=== PATIENT | female | born 1945 | race Caucasian/White ===

== ENCOUNTER → 2017-10-06 | Outpatient (CLI) | payer OTHER ==
[~2017-10-06] MED LIST: ACETAMINOPHEN325 M1 PO; ADVAIR 250-501 EACH INH; ADVAIR HFA 1112 UNIT INH; AZITHROMYCIN 2250 MG PO; B12INJ IM; BACLOFEN 10 MG10 MG PO; CLONAZEPAM; CLONAZEPAM 0.50.5 M1; CLONAZEPAM 0.50.5 M1 PO; CLONAZEPAM 1 MG1 M1 PO; COLESTID1 GM PO; COMBIVENT RESPIM4 GM INH; DUONEB 2.5-0.5 M3 ML INH; EXCEDRIN MIGRA1 EAC1 PO; HYDROXYZINE HCL25 M1 PO; HYDROXYZINE HCL25 M2 PO; IBUPROFEN 200200 M1 PO; ICY HOT BALM99.2 GM TOP; IMITREX100 MG PO; K-DUR 20 MEQ T20 MEQ PO; KEPPRA 500 MG500 M1; KEPPRA250 MG PO; LASIX 40 MG TAB40 M1 GT; LEVOTHROID PO; LEVOTHYROXIN0.125 M1 PO; LEVOTHYROXINE 0.1 MG PO; LIORESAL 10 MG10 MG PO; LOMOTIL 2.5-0.01 TAB PO; LOMOTIL TABLET1 EACH PO; LYRICA 75 MG CA75 MG PO; LYRICA150 MG PO; MACROBID 100 M100 M1 PO; METOCLOPRAMIDE; METOCLOPRAMIDE10 MG PO; METOLAZONE 2.52.5 MG PO; MOBIC7.5 MG; MOBIC7.5 MG PO; NEURONTIN 300300 M1 PO; NEURONTIN 300M300 M2 PO; NEURONTIN600 MG PO; NORCO 5-325 TA1 EACH PO; ONDANSETRON HCL4 M2 PO; PERCOCET 10-321 EACH PO; PERCOCET 5-3251 EACH; PERCOCET 5-3251 EACH PO; POTASSIUM20 PO; PREDNISONE 10 M10 M1 PO; PREDNISONE 5 MG5 M1 PO; REGLAN 10 MG TA10 MG; REGLAN 10 MG TA10 MG PO; REQUIP 1 MG TABL1 M1; RESTORIL15 MG PO; SYNTHROID200 MCG PO; TIZANIDINE HCL 22 M1 PO; XOPENEX HFA15 GM INH; ZANAFLEX2 M1 PO; ZANAFLEX4 M1; ZANAFLEX4 MG PO
[2017-10-06 14:58] LABS: CREATININE 0.8 mg/dL (0.6-1.0)
== END ==
LOC: MRI 14:01
PROVIDERS: Anesthesiology
DX: M47.896 Other spondylosis, lumbar region (principal); M48.061 Spinal stenosis, lumbar region without neurogenic claudication; M41.86 Other forms of scoliosis, lumbar region; M54.6 Pain in thoracic spine

== ENCOUNTER → 2017-11-04 | Outpatient (CLI) | payer OTHER | LOC: MRI 09-22 09:17 → CAT 08:10 | DX: I51.7 Cardiomegaly (principal); R10.32 Left lower quadrant pain ==

== ENCOUNTER → 2017-12-12 | Outpatient (CLI) | payer OTHER ==
[~2017-12-12] MED LIST changes: +DILANTIN100 MG PO; +KEPPRA 500 MG500 M1 PO; +LINZESS145 MCG PO; +VITAMIN B-12500 MCG PO
== END ==
LOC: ULTRA 09:04
DX: R10.32 Left lower quadrant pain (principal); R10.2 Pelvic and perineal pain; Z90.710 Acquired absence of both cervix and uterus; Z90.49 Acquired absence of other specified parts of digestive tract

== ENCOUNTER → 2018-01-14 | Outpatient (CLI) | payer OTHER | LOC: CAT 01-07 07:52 | DX: R91.1 Solitary pulmonary nodule (principal); J98.4 Other disorders of lung; J84.10 Pulmonary fibrosis, unspecified; Z90.49 Acquired absence of other specified parts of digestive tract ==

== ENCOUNTER 2018-01-18 23:20 | Inpatient (IN) | payer OTHER ==
[~2018-01-18] VITALS: Ht 162.6 cm; Wt 45.4 kg
--- NOTE | ~2018-01-18 | EEG ---
[facility] [place] [address] ELECTROENCEPHALOGRAM Name: SERA VILA Room #: 430-P [facility] IN M.R.#: [id number] Admission: 01/19/18 Attend Phys: Kevin Gasca MD Discharge: 01/24/18 Date of : 43 Report #: [id number] THIS REPORT FOR: //name// CC: Kevin Huang DATE OF SERVICE: 01/22/2018 This patient is being evaluated for the possibility of seizure. She was in nonconvulsive status epilepticus yesterday. EEG is done for comparison. EEG was done by placing the electrodes by standard 10/20 system of electrode placement. Both referential and sequential montages were used for recording. Background activity in this patient's EEG goes about 8-9 Hz and 30 microvolt. The patient went to sleep, that is associated with bilateral slowing, vertex sharp waves and sleep spindle. Some epileptiform activity is still present, but there is a marked improvement since yesterday. IMPRESSION: Significant improvement and pretty significant decrease in epileptiform activities in this patient's EEG. Some epileptiform activity is still present and is not fully resolved yet. Thank you very much for this referral. <ELECTRONICALLY SIGNED> By: Hugo Farmer MD 01/24/18 1552 1136 1153 Hugo Farmer MD /nt
--- NOTE | ~2018-01-18 | EEG ---
[facility] [place] [address] ELECTROENCEPHALOGRAM Name: SERA VILA Room #: 430-P [facility] IN M.R.#: [id number] Admission: 01/19/18 Attend Phys: Kevin Gasca MD Discharge: 01/24/18 Date of : 43 Report #: [id number] THIS REPORT FOR: //name// CC: Kevin Huang DATE OF SERVICE: 01/20/2018 This patient is being evaluated for altered mental status. This patient's EEG is severely abnormal and it demonstrates epileptiform activity from both sides. The activity is almost continuous. Photic stimulation is unremarkable. IMPRESSION: The patient's EEG is consistent with nonconvulsive status epilepticus. Thank you very much for this referral. <ELECTRONICALLY SIGNED> By: Hugo Farmer MD 01/24/18 1552 1115 1207 Hugo Farmer MD /nt
--- NOTE | ~2018-01-18 | EEG ---
[facility] [place] [address] ELECTROENCEPHALOGRAM Name: SERA VILA Room #: 430-P [facility] IN M.R.#: [id number] Admission: 01/19/18 Attend Phys: Kevin Gasca MD Discharge: 01/24/18 Date of : 43 Report #: [id number] THIS REPORT FOR: //name// CC: Kevin Huang DATE OF SERVICE: 01/19/2018 This patient is being evaluated for the possibility of seizure. EEG was done by placing the electrodes by standard 10-20 system of electrode placement. Both referential and sequential montages were used for recording. EEG is masked by a lot of artifact. It would appear the background activity is about 5-6 Hz and 30 microvolt. EEG continuously demonstrates artifact making the interpretation very difficult. Photic stimulation was unremarkable. It is very difficult to tell about epileptiform activity. IMPRESSION: This is a very difficult electroencephalogram to interpret because the patient's electroencephalogram is masked by a lot of artifact. Electroencephalogram does look slow on both sides. It is difficult to evaluate for epileptiform activity because of the artifact. <ELECTRONICALLY SIGNED> By: Hugo Farmer MD 01/24/18 1552 1611 1704 Hugo Farmer MD /nt
--- NOTE | ~2018-01-18 | EKG ---
[place] [address] [address] [place] [address] ELECTROCARDIOGRAM REPORT Name: SERA VILA Room #: 170-9 ADM IN M.R.#: [id number] Admission: 01/19/18 Attend Phys: Kevin Gasca MD Discharge: Date of : 44 Report #: [id number] THIS REPORT FOR: //name// [facility] ED Test Date: 2018-01-18 Test Time: 23:35:34 Pat Name: SERA VILA Department: Room: 170 Gender: F Shipping And Receiving Supervisor: COURTNEY : 1945 Requested By: Feng Stahl Order Number: [id number] MD: Nicolás Elizabeth Measurements Intervals [place] Rate: 83 P: 81 [place]: 156 QRS: -51 QRSD: 100 T: 65 QT: 355 QTc: 418 Interpretive Statements Sinus rhythm Left anterior fascicular block Compared to ECG 06/11/2016 16:52:00 No significant change was found Electronically Signed On 01-19-2018 8:44:37 C PROGRAMMER by Nicolás Elizabeth [email or web address] <ELECTRONICALLY SIGNED> By: Nicolás Elizabeth MD, [facility] 01/19/18 0844 2335 34 Nicolás Elizabeth MD, [facility] /EPI
--- NOTE | ~2018-01-18 | HC ---
[facility] [place] [address] CONSULTATION Name: SERA VILA Room #: 430-[facility] IN M.R.#: [id number] Admission: 01/19/18 Attend Phys: Kevin Gasca MD Discharge: 01/24/18 Date of : 44 Report #: [id number] THIS REPORT FOR: //name// CC: Kvein Huang DATE OF SERVICE: 01/23/2018 HISTORY OF PRESENT ILLNESS: The patient is a 72-year-old white female who was admitted with mental status changes, slurred speech, and gait instability. She was seen by Neurology, was noted to have an encephalopathy and nonconvulsive status epilepticus. She was placed on Keppra and Dilantin. She also has hyponatremia with sodium down to 129. She is starting to feel better now. We are seeing her in rehabilitation medicine consultation. PAST MEDICAL HISTORY: Includes a prior history of lung cancer and she has had approximately half of her right lung removed approximately 3 years ago. History of a seizure disorder, chronic low back pain, GERD. MEDICATIONS: Please see the full medication listing. ALLERGIES: BUPRENORPHINE FROM BUTRANS AND LEVOFLOXACIN. HABITS: Current every day smoker. No history of alcohol abuse. SOCIAL HISTORY: She lives in a house, which is in actuality a townhouse with a sister. She has a cane and a walker, but did not use them as she felt that they made her look old. There is a caregiver that assists her between 9 and 3 and she is typically alone for 1-2 hours a day. REVIEW OF SYSTEMS: Did not offer any current complaints of chest pain, shortness of breath, or abdominal discomfort. PHYSICAL EXAMINATION: GENERAL: A 72-year-old white female, small statured, thin, no obvious distress. She is rather cantankerous. VITAL SIGNS: Temperature 98.2, pulse 104, respirations 18, blood pressure 123/81. Facies appeared symmetric. HEENT: Appeared to be benign. EXTREMITIES: Functional range of motion of both upper extremities with strength grade 4-/5-4/5. DTRs are trace to 1. Lower extremities, no focal calf swelling, functional range of motion with strength grade 4-/5. She is mod assist with sit to stand. Gait was max assist 120 feet pushing the IV pole. She is noted to have moderate memory deficits. ASSESSMENT: A 72-year-old white female with the following problem list: [address] [address] CONSULTATION Name: SERA VILA Room #: 430-P [facility] IN .R.#: [id number] Admission: 01/19/18 Attend Phys: Kevin Gasca MD Discharge: 01/24/18 Date of : 43 Report #: [id number] 1. Nonconvulsive status epilepticus. 2. Encephalopathy. 3. Hyponatremia. 4. Functional mobility, ADLs and cognitive deficits. 5. Past history of lung cancer. 6. Prior history of a seizure disorder. 7. Chronic low back pain. PLAN: The patient is rather cantankerous and insists on going directly home. I encouraged her to continue working in the therapies to further improve her overall functional independence. Depending upon how she does, we will follow along with you regarding the possibility of a short acute in-hospital inpatient rehabilitation stay. If it is warranted, her family is probably going to need to talk with her as well in order to convince her why it would be indicated. She appears to have decreased insight, but also appears to be doing better overall. We will follow along with how she does in therapies today and be glad to assist regarding her rehab therapy needs. <ELECTRONICALLY SIGNED> By: Obed Hedrick MD 01/29/18 1124 1127 0151 Obed Hedrick MD /[facility]
--- NOTE | ~2018-01-18 | HC ---
[facility] [address] [place] [address] CONSULTATION Name: SERA VILA Room #: 430-[facility] IN M.R.#: [id number] Admission: 01/19/18 Attend Phys: Kevin Gasca MD Discharge: 01/24/18 Date of : 43 Report #: [id number] THIS REPORT FOR: //name// CC: Kevin Huang DATE OF SERVICE: 01/19/2018 HISTORY OF PRESENT ILLNESS: This is a 72-year-old female patient who is not able to provide any history at all. This patient rather does not have much speech output. Her Neurology consultation was requested today because of the possibility of seizure. I tried to reach the patient's brother, but was unable to reach the patient's brother. I talked to the [id number]-son, but she did not know much history. We were finally able to reach the brother just now. The history he provides is that this patient lives with her sister. She has moved in with her sister because of the financial things as well as some disability because she does not drive. He believes she started having seizures 3-4 years ago. The cause of the seizure was not clear. She was started on Keppra and her seizures were controlled. It looks like yesterday evening she started having some balance problem, altered mental status and was bumping into the things. It is not clear if she had a clear cut seizure at that time. The symptoms were acute on onset. She was brought to the Emergency Room and she was seen by Emergency Room. I reviewed those notes. It looks like the patient got admitted from the Emergency Room at that time and she has not demonstrated any clear cut history of seizures. I talked to the nurses multiple times. She is mostly complaining of back pain, but she has very little speech output. Brother thinks she may have said a few words, but I do not know whether she is able to talk at all. REVIEW OF SYSTEMS: Indicate that she does smoke. It is not clear why she started having seizure. Her sodium is somewhat low, but it is only about 132. That was the relevant 14-point review of system, which I carried out in this patient. She does have a history of lung cancer. She does have chronic low back pain and she goes to a pain management physician. PAST MEDICAL HISTORY: Positive for lung cancer. FAMILY HISTORY: Negative for any early age stroke. SOCIAL HISTORY: She smokes. PHYSICAL EXAMINATION: The patient's examination was carried out multiple times. I cannot get a good examination in this patient. The patient does not say any words. The patient does not smile for me to look at the face to tell about asymmetry. She is left handed according to the brother, but she used right hand [facility] [address] [place] [address] CONSULTATION Name: SERA VILA Room #: 430-P [facility] IN M.R.#: [id number] Admission: 01/19/18 Attend Phys: Kevin Gasca MD Discharge: 01/24/18 Date of : 43 Report #: [id number] more. She does not cooperate with the sensory system examination. I do not believe she has meningeal sign. She does not appear to have any respiratory difficulty. IMPRESSION: It is not clear what the patient's diagnosis is. Firstly, we need to evaluate the patient for the possibility of stroke. Her examination is poor, but she is left handed and she is using the right hand more than the left hand the best I can tell. She does have a history of seizures and I do not know what the original etiology of the seizure is, but presently I do not think anybody has documented seeing her having a seizure. Seizure is a possibility and we need to get an EEG, but we need to also make sure that she is not having any stroke. RECOMMENDATIONS: I would like to do an MRI in this patient to see if this patient had a stroke. If the patient did have a stroke the time of onset will be yesterday evening. I do not believe she will be any intervention candidate. If I am not able to get an MRI done soon, I would like to do a CT angio and perfusion in this patient, but MRI will be a better testing. Further management will depend upon the outcome of that testing. I did discuss that aspect with the family. The patient does have a living will, which they will bring and I will also get an EEG done to see if there is any seizure activity. I spent more than 50 minutes of time taking care of this patient and majority of that time was spent counseling this patient and when I realized the patient did not understand things, counseling the patient's brother. I discussed the patient with the nurses looking after this patient. This patient does not appear to be any intervention candidate because her symptoms happened sometime yesterday evening, but still I would like to pursue the workup and see if she is able to cooperate with MRI and I did order a stat MRI to look at that and if the stroke is excluded then we will consider other causes. Thank you very much for this referral and if you have any questions, please feel free to contact me. <ELECTRONICALLY SIGNED> By: Hugo Farmer MD 01/24/18 1549 1726 0419 Hugo Farmer MD /nt
[~2018-01-18 23:20] MED LIST changes: -DILANTIN100 MG PO; -KEPPRA 500 MG500 M1 PO; -LINZESS145 MCG PO; -VITAMIN B-12500 MCG PO
[2018-01-18 23:26] VITALS: BP 163/94
[2018-01-19 00:28] LABS: ABSOLUTE NEUTROPHILS 4.5 thou/uL (1.4-8.2); BASOPHILS 0.7 % (0.0-2.0); EOSINOPHILS 0.8 % (0.0-3.0); HEMATOCRIT 37.7 % (37.0-47.0); HEMOGLOBIN 12.7 gm/dL (12.0-15.0); LYMPHOCYTES 18.1 % (24.0-44.0); MCH 31.6 pg (26.0-34.0); MCHC 33.6 g/dL (28.0-37.0); MCV 93.8 fL (80.0-100.0); PLATELET COUNT 316 thou/uL (150-400); POLYS 69.4 % (36.0-66.0); RBC 4.02 mil/uL (4.20-5.00); RDW 13.9 % (10.5-14.5); WBC 6.6 thou/uL (4.0-11.0)
[2018-01-19 00:32] LABS: CALCIUM 9.4 mg/dL (8.5-10.1); POTASSIUM 3.6 mmol/L (3.5-5.1)
[2018-01-19 00:38] LABS: ALBUMIN 3.1 g/dL (3.4-5.0); TOTAL BILIRUBIN 0.2 mg/dL (<0.1-1.0); TOTAL PROTEIN 7.4 g/dL (6.4-8.2)
[2018-01-19 01:08] LABS: URINE BILIRUBIN NEGATIVE (Negative); URINE BLOOD NEGATIVE (Negative); URINE CLARITY CLEAR; URINE COLOR YELLOW; URINE GLUCOSE-RANDOM* NEGATIVE (Negative); URINE KETONES NEGATIVE (Negative); URINE LEUKOCYTES-REFLEX NEGATIVE (Negative); URINE NITRITE-REFLEX NEGATIVE (Negative); URINE PROTEIN (DIPSTICK) NEGATIVE (Negative); URINE SPECIFIC GRAVITY <= 1.005 (1.005-1.035); URINE UROBILINOGEN 0.2 E.U./dl (0.2-1.0)
[2018-01-19 04:54] VITALS: BP 162/81
[2018-01-19 12:40] VITALS: BP 160/85
[2018-01-19 13:33] VITALS: BP 174/103
[2018-01-19 19:40] VITALS: BP 171/92
[2018-01-20 03:20] VITALS: BP 164/93
[2018-01-20 05:54] LABS: CALCIUM 8.8 mg/dL (8.5-10.1); CREATININE 0.7 mg/dL (0.6-1.0); POTASSIUM 3.1 mmol/L (3.5-5.1)
[2018-01-20 06:02] LABS: ABSOLUTE NEUTROPHILS 6.5 thou/uL (1.4-8.2); BASOPHILS 0.1 % (0.0-2.0); HEMATOCRIT 40.2 % (37.0-47.0); HEMOGLOBIN 13.4 gm/dL (12.0-15.0); LYMPHOCYTES 4.8 % (24.0-44.0); MCH 31.5 pg (26.0-34.0); MCHC 33.2 g/dL (28.0-37.0); MCV 94.8 fL (80.0-100.0); MONOCYTES 0.7 % (1.0-8.0); PLATELET COUNT 337 thou/uL (150-400); POLYS 94.4 % (36.0-66.0); RBC 4.25 mil/uL (4.20-5.00); WBC 6.9 thou/uL (4.0-11.0)
[2018-01-20 07:57] VITALS: BP 170/92
[2018-01-20 14:00] LABS: MAGNESIUM 1.7 mg/dL (1.8-2.4)
[2018-01-20 15:31] VITALS: BP 158/77
[2018-01-20 16:51] LABS: BE(vivo) -1.2 mmol/L (-2 to +3); HCO3 23.2 mmol/L (22.0-26.0); PCO2 37.9 mmHg (35.0-45.0); PO2 73.4 mmHg (80.0-100.0); pH 7.405 (7.360-7.450); sO2 94.9 % (92.0-98.0)
[2018-01-20 19:30] VITALS: BP 149/96
[2018-01-21 04:00] VITALS: BP 161/105
[2018-01-21 07:36] VITALS: BP 147/116
[2018-01-21 16:32] VITALS: BP 138/95
[2018-01-21 19:43] VITALS: BP 160/82
[2018-01-22] VITALS: BP 147/85
[2018-01-22 03:33] VITALS: BP 152/97
[2018-01-22 09:25] LABS: ABSOLUTE NEUTROPHILS 9.7 thou/uL (1.4-8.2); BASOPHILS 0.5 % (0.0-2.0); EOSINOPHILS 0.1 % (0.0-3.0); HEMATOCRIT 39.7 % (37.0-47.0); HEMOGLOBIN 13.5 gm/dL (12.0-15.0); MCHC 34.1 g/dL (28.0-37.0); MONOCYTES 9.5 % (1.0-8.0); PLATELET COUNT 384 thou/uL (150-400); POLYS 79.9 % (36.0-66.0); RBC 4.23 mil/uL (4.20-5.00); RDW 13.9 % (10.5-14.5); WBC 12.2 thou/uL (4.0-11.0)
[2018-01-22 09:41] LABS: CALCIUM 9.1 mg/dL (8.5-10.1); CREATININE 0.7 mg/dL (0.6-1.0); MAGNESIUM 1.7 mg/dL (1.8-2.4); POTASSIUM 3.4 mmol/L (3.5-5.1); TOTAL BILIRUBIN 0.4 mg/dL (<0.1-1.0); TOTAL PROTEIN 7.5 g/dL (6.4-8.2)
[2018-01-22 16:00] VITALS: BP 142/101
[2018-01-22 20:04] VITALS: BP 153/84
[2018-01-23 04:23] VITALS: BP 109/76
[2018-01-23 08:16] VITALS: BP 123/81
[2018-01-23 08:29] LABS: HEMATOCRIT 42.2 % (37.0-47.0); HEMOGLOBIN 14.1 gm/dL (12.0-15.0); MCH 31.6 pg (26.0-34.0); MCHC 33.4 g/dL (28.0-37.0); MCV 94.6 fL (80.0-100.0); RBC 4.46 mil/uL (4.20-5.00); RDW 13.8 % (10.5-14.5)
[2018-01-23 08:47] LABS: ALBUMIN 2.9 g/dL (3.4-5.0); CREATININE 0.8 mg/dL (0.6-1.0); MAGNESIUM 1.6 mg/dL (1.8-2.4); TOTAL BILIRUBIN 0.4 mg/dL (<0.1-1.0); TOTAL PROTEIN 7.4 g/dL (6.4-8.2)
[2018-01-23 08:49] LABS: POTASSIUM 4.6 mmol/L (3.5-5.1)
[2018-01-23 16:11] VITALS: BP 133/91
[2018-01-23 20:00] VITALS: BP 145/93
[2018-01-24 04:30] VITALS: BP 135/92
[2018-01-24 07:45] VITALS: BP 133/92
[2018-01-24] MEDS ORDERED: DILANTIN100 MG PO (11:44)
[2018-01-24 13:52] VITALS: BP 133/92
[2018-01-24 14:02] VITALS: BP 133/92
[2018-01-24] MEDS ORDERED: KEPPRA 500 MG500 M1 PO (14:18)
== END 2018-01-24 14:32 | disposition home health service (06) | DRG 70 ==
LOC: ER 23:20 → EROBS 01-19 01:09 → 4E 01-19 01:09
PROVIDERS: Emergency Medicine; Hospitalist; Psychiatry & Neurology Neuromuscular Medicine; Registered Nurse
DX: G93.41 Metabolic encephalopathy (principal); E43 Unspecified severe protein-calorie malnutrition; E87.1 Hypo-osmolality and hyponatremia; Z68.1 Body mass index [BMI] 19.9 or less, adult; G40.909 Epilepsy, unspecified, not intractable, without status epilepticus; F17.210 Nicotine dependence, cigarettes, uncomplicated; G89.29 Other chronic pain; M54.5 Low back pain; K21.9 Gastro-esophageal reflux disease without esophagitis; G40.901 Epilepsy, unspecified, not intractable, with status epilepticus; R41.89 Other symptoms and signs involving cognitive functions and awareness; I10 Essential (primary) hypertension; E03.9 Hypothyroidism, unspecified; T50.905A Adverse effect of unspecified drugs, medicaments and biological substances, initial encounter; Z66 Do not resuscitate; Z86.73 Personal history of transient ischemic attack (TIA), and cerebral infarction without residual deficits; Z90.710 Acquired absence of both cervix and uterus; Z88.8 Allergy status to other drugs, medicaments and biological substances; Z88.1 Allergy status to other antibiotic agents; Z85.118 Personal history of other malignant neoplasm of bronchus and lung
CPT/HCPCS: 10183

== ENCOUNTER 2018-08-18 12:01 | Inpatient (IN) | payer OTHER ==
[~2018-08-18] VITALS: Ht 160 cm; Wt 43.9 kg
--- NOTE | ~2018-08-18 | EKG ---
[place] [address] [facility] [place] [address] ELECTROCARDIOGRAM REPORT Name: SERA VILA Room #: 421-P ADM IN M.R.#: [id number] Admission: 08/18/18 Attend Phys: Kevin Gacsa MD Discharge: Date of : 43 Report #: [id number] THIS REPORT FOR: //name// [facility] ED Test Date: 2018-08-18 Test Time: 13:40:55 Pat Name: SERA VILA Department: Room: 421 Gender: F Aws Developer: JOSE DE JESUS : 1945 Requested By: Jennie Hoffmann Order Number: [id number] MD: Nicolás Elizabeth Measurements Intervals [place] Rate: 79 P: 68 FL: 160 QRS: -17 QRSD: 83 T: 64 QT: 345 QTc: 396 Interpretive Statements Sinus rhythm Probable left atrial enlargement Borderline left axis deviation Probable anteroseptal infarct, old Compared to ECG 01/18/2018 23:35:34 Septal Q waves are more prominent Electronically Signed On 08-18-2018 16:39:59 CDT by Nicolás Elizabeth [email or web address] <ELECTRONICALLY SIGNED> By: Nicolás Elizabeth MD, [facility] 08/18/18 1639 1340 1340 Nicolás Elizabeth MD, [facility] /EPI
--- NOTE | ~2018-08-18 | EEG ---
[facility] [place] [address] ELECTROENCEPHALOGRAM Name: SERA VILA Room #: 421-P [facility] IN M.R.#: [id number] Admission: 08/18/18 Attend Phys: Kevin Gasca MD Discharge: 08/21/18 Date of : 44 Report #: [id number] THIS REPORT FOR: //name// CC: Kevin Huang MD HISTORY: The patient is a 73-year-old female with history of seizure disorder. An EEG is requested for further evaluation. DESCRIPTION: The awake record consists of symmetric moderate to high amplitude 6 Hz posterior dominant rhythm, which attenuates with eye opening. No focal abnormalities or epileptiform discharges are noted. Photic stimulation is non-activating. IMPRESSION: This is an abnormal adult awake record, consistent with [id number]-pc-jsrmuyra diffuse cerebral dysfunction. No focal abnormalities or epileptiform discharges are noted. <ELECTRONICALLY SIGNED> By: Elizabeth David DO 09/02/18 1156 1342 1350 Elizabeth David DO /nt
--- NOTE | ~2018-08-18 | HC ---
[facility] [place] [address] CONSULTATION Name: SERA VILA Room #: 421-P [facility] IN M.R.#: [id number] Admission: 08/18/18 Attend Phys: Kevin Gasca MD Discharge: 08/21/18 Date of : 44 Report #: [id number] THIS REPORT FOR: //name// CC: Kevin Huang DATE OF SERVICE: 08/19/2018 HISTORY OF PRESENT ILLNESS: The patient is a 73-year-old white female who was admitted after being found by the home health care agency confused and apparently fallen at home. Initially was combative upon transport. She was noted to have acute mental status changes, question postictal or metabolic. She has a prior history of seizure disorder, on Keppra and Dilantin. She also was noted to have hyponatremia. Her main complaint to me is mid back pain. Did not complain of any specific radicular component. She is a limited historian as to the length of duration of the mid back pain. PAST MEDICAL HISTORY: Seizure disorder as noted above. She has had a prior history of lung cancer and has had approximately half of her right lung removed approximately 4 years ago. There is a note of chronic low back pain, history of GERD. MEDICATIONS: Please see the full medication listing. This includes vitamins, herbals, and supplements. ALLERGIES: BUPRENORPHINE FROM BUTRANS AND LEVOFLOXACIN. HABITS: Noted to be a current every day smoker. No history of alcohol abuse. SOCIAL HISTORY: She was noted to live in a town house with her sister. Her sister has gone during the day and there is a paid caregiver that helps her. Premorbidly was ambulatory without gait aids apparently. She is a limited historian. In the past, she indicated that she does not like to utilize gait aids. REVIEW OF SYSTEMS: No chest pain, shortness of breath, abdominal discomfort. Complains of the mid back pain as noted above. PHYSICAL EXAMINATION: GENERAL: A 73-year-old thin white female, short statured, in no obvious distress. VITAL SIGNS: Last recorded temperature 98.1, pulse is 96, respirations 16, blood pressure 126/51. NEUROLOGIC: The patient is alert. She is a limited historian and does not speak a lot even including to answer some of the questions, but she will follow basic one-step commands. Complains of the mid back pain. Definitely easily [facility] [address] [place] [address] CONSULTATION Name: SERA VILA Room #: 421-P [facility] IN M.R.#: [id number] Admission: 08/18/18 Attend Phys: Kevin Gasca MD Discharge: 08/21/18 Date of : 43 Report #: [id number] distractable. EOMs appeared full. Functional range of motion of both upper extremities. Strength is grade 3+ to 4-/5. DTRs are trace to 1. Low back was examined along with her mid back. No evidence of skin breakdown per se. She has some diffuse tenderness. She keeps rubbing her mid back. Lower extremities, no focal calf swelling. Strength is a grade 4 to 4-/5. DTRs are trace to 1. She is mod assist with sit to stand. Gait 150 feet min assist with a front-wheeled walker. ASSESSMENT: The patient is a 73-year-old white female with the following problem list: 1. Mental status changes appear consistent with an encephalopathy, question postictal, question metabolic. 2. Apparent fall at home. 3. Hyponatremia, mild, may have a role with metabolic encephalopathy. 4. Seizure disorder, on Keppra and Dilantin. 5. Mid back pain. Apparently, she had a chronic history of back pain. 6. Past history of lung cancer. 7. Gastroesophageal reflux disease. 8. History of chronic low back pain. PLAN: As there is a questionable history of a fall and with her prior lung cancer history, we will obtain x-rays of thoracic and lumbar spine. I would like to rule out any type of acute compression fracture or potential complications from her prior lung cancer. Therapy evaluations are underway and we will see how she does from a functional perspective. Insurance will need to be checked regarding rehab therapy options and we will follow along with you. <ELECTRONICALLY SIGNED> By: Obed Hedrick MD 08/28/18 1220 1312 0608 Obed Hedrick MD /nt
--- NOTE | ~2018-08-18 | HC ---
[facility] [place] [address] CONSULTATION Name: SERA VILA Room #: 421-P [facility] IN M.R.#: [id number] Admission: 08/18/18 Attend Phys: Kevin Gasca MD Discharge: 08/21/18 Date of : 43 Report #: [id number] THIS REPORT FOR: //name// CC: Kevin Huang DATE OF SERVICE: 08/20/2018 HISTORY OF PRESENT ILLNESS: This is a 73-year-old female patient who was evaluated by me for altered mental status. The patient is well known to me. She was admitted here with nonconvulsive status epilepticus. She was pretty critical, but then she became better. Since then, she has been on multiple medications. She is on gabapentin and Keppra. Gabapentin was given for pain, but that will also help the seizure. She had a fall. She does not remember why she fell down. Her Dilantin level was 25. It is therapeutic now. She has not had any further seizures since she has been here. REVIEW OF SYSTEMS: Indicates that the patient always underestimates her problems. She wants to go home. She does not believe she has anything wrong with her. She has chronic back pain. She has some hyponatremia. She does not drink alcohol, but her MCV is high. Her sodium when she came in was 128. She had multiple imaging studies of spine and the brain when she came in and that did not show any definite abnormality, which can explain the patient's symptom. Her last vitamin D was okay. We carried out 14-point review of system and it is as described above. PAST MEDICAL HISTORY: Positive for nonconvulsive status. She has chronic back pain. FAMILY HISTORY: Negative for any early age stroke. SOCIAL HISTORY: She lives with her sister. She does get help in the morning. PHYSICAL EXAMINATION: Indicates she is alert. She is responsive. She can follow simple and complex commands. Her memory is poor, but that is her baseline. Her speech looks intact. Cranial nerve examination 2-12 is unremarkable. Neuromuscular examination is symmetrical. No change in cardiac status. No respiratory change. She is a moderately built individual. Her blood pressure is 124/83, respirations 18, pulse is 95, temperature is 97.5. She did have a CT scan of the head on admission, which showed atrophy. IMPRESSION: This patient does appear to have some cognitive impairment in the baseline. I do not believe the present episode was a seizure. I think her seizure medications need to be readjusted because she never had any further seizures after her nonconvulsive status. She is getting macrocytosis in spite [address] [address] CONSULTATION Name: SERA VILA Room #: 421-[facility] IN M.R.#: [id number] Admission: 08/18/18 Attend Phys: Kevin Gasca MD Discharge: 08/21/18 Date of : 43 Report #: [id number] of not drinking any alcohol. Therefore, Dilantin may not be very good medication for her. I discussed the plan with her and she understood that. Just to be sure, I called the patient's family and discussed the plan with them also. My recommendation was to just continue Keppra and gabapentin and see if that can control the seizures. If that cannot control the seizure, then we should add another medication. The downside to that approach is that she may start having seizures again. I discussed all of it with the family again and they are willing to take that risk, and we will go ahead and follow that approach. I have ordered an EEG and if EEG is okay, we may either not start back the Dilantin or start on a lower dose. If that approach is followed, she needs to be closely monitored for seizure. The plan is to send her to some rehab and if that is done, it will be much easier to stop the Dilantin and continue other seizure medication. Otherwise, we may have to consider tapering it off. Thank you very much for this referral. More than 50 minutes of time was spent taking care of this patient today and majority of that time was spent counseling the patient and subsequently talking to the patient's brother and reviewing all her data from the past. <ELECTRONICALLY SIGNED> By: Hugo Farmer MD 08/24/18 0947 1459 0304 Hugo Farmer MD /nt
[~2018-08-18 12:01] MED LIST changes: +DILANTIN100 MG PO; +KEPPRA 500 MG500 M1 PO
[2018-08-18 12:02] VITALS: BP 113/66
[2018-08-18 13:25] LABS: ABSOLUTE NEUTROPHILS 3.4 thou/uL (1.4-8.2); BASOPHILS 0.9 % (0.0-2.0); EOSINOPHILS 0.5 % (0.0-3.0); HEMOGLOBIN 12.3 gm/dL (12.0-15.0); LYMPHOCYTES 30.1 % (24.0-44.0); MCH 35.5 pg (26.0-34.0); MCHC 35.2 g/dL (28.0-37.0); MCV 100.9 fL (80.0-100.0); MONOCYTES 10.4 % (1.0-8.0); PLATELET COUNT 290 thou/uL (150-400); POLYS 58.1 % (36.0-66.0); RBC 3.47 mil/uL (4.20-5.00); RDW 13.5 % (10.5-14.5); WBC 5.8 thou/uL (4.0-11.0)
[2018-08-18 13:34] LABS: ANION GAP 5 mmol/L (7-16); BUN 13 mg/dL (7-18); CALCIUM 9.4 mg/dL (8.5-10.1); CHLORIDE 93 mmol/L (98-107); CO2 30 mmol/L (21-32); CREATININE 0.9 mg/dL (0.6-1.0); GLUCOSE 89 mg/dL (74-106); POTASSIUM 4.2 mmol/L (3.5-5.1); SODIUM 128 mmol/L (136-145)
[2018-08-18 13:43] LABS: ALBUMIN 3.2 g/dL (3.4-5.0); SGOT 15 U/L (15-37); SGPT 24 U/L (30-65); TOTAL BILIRUBIN 0.4 mg/dL (<0.1-1.0); TOTAL PROTEIN 6.9 g/dL (6.4-8.2); TROPONIN-I <0.06 ng/mL (<0.06)
[2018-08-18 13:44] LABS: URINE BILIRUBIN NEGATIVE (Negative); URINE BLOOD TRACE (Negative); URINE CLARITY CLEAR; URINE COLOR YELLOW; URINE GLUCOSE-RANDOM* NEGATIVE (Negative); URINE KETONES NEGATIVE (Negative); URINE LEUKOCYTES-REFLEX NEGATIVE (Negative); URINE NITRITE-REFLEX NEGATIVE (Negative); URINE PROTEIN (DIPSTICK) NEGATIVE (Negative); URINE SPECIFIC GRAVITY <= 1.005 (1.005-1.035); URINE UROBILINOGEN 0.2 E.U./dl (0.2-1.0)
[2018-08-18] MEDS ORDERED: LINZESS145 MCG PO (15:03)
[2018-08-18 15:05] VITALS: BP 131/84
[2018-08-18 16:23] VITALS: BP 148/85
[2018-08-18 19:25] VITALS: BP 114/73
[2018-08-19 04:01] LABS: CALCIUM 9.1 mg/dL (8.5-10.1); CREATININE 0.7 mg/dL (0.6-1.0); POTASSIUM 3.7 mmol/L (3.5-5.1)
[2018-08-19 04:23] LABS: HEMATOCRIT 31.6 % (37.0-47.0); MCH 35.6 pg (26.0-34.0); MCHC 34.9 g/dL (28.0-37.0); RBC 3.09 mil/uL (4.20-5.00); RDW 13.7 % (10.5-14.5); WBC 6.4 thou/uL (4.0-11.0)
[2018-08-19 08:06] VITALS: BP 126/51
[2018-08-19 19:11] VITALS: BP 139/80
[2018-08-19 20:16] VITALS: BP 133/90
[2018-08-20 04:32] VITALS: BP 132/88
[2018-08-20 06:20] LABS: ABSOLUTE NEUTROPHILS 4.2 thou/uL (1.4-8.2); BASOPHILS 0.8 % (0.0-2.0); EOSINOPHILS 0.6 % (0.0-3.0); HEMATOCRIT 31.1 % (37.0-47.0); HEMOGLOBIN 10.9 gm/dL (12.0-15.0); LYMPHOCYTES 24.1 % (24.0-44.0); MCH 35.6 pg (26.0-34.0); MCHC 34.9 g/dL (28.0-37.0); MONOCYTES 9.4 % (1.0-8.0); PLATELET COUNT 257 thou/uL (150-400); POLYS 65.1 % (36.0-66.0); RBC 3.05 mil/uL (4.20-5.00); RDW 13.6 % (10.5-14.5); WBC 6.5 thou/uL (4.0-11.0)
[2018-08-20 06:30] LABS: CREATININE 0.6 mg/dL (0.6-1.0); POTASSIUM 3.7 mmol/L (3.5-5.1)
[2018-08-20 07:25] VITALS: BP 145/95
[2018-08-20 12:24] VITALS: BP 124/83
[2018-08-20 19:41] VITALS: BP 19/93
[2018-08-21 05:13] VITALS: BP 155/95
[2018-08-21 07:17] VITALS: BP 149/83
[2018-08-21 07:19] LABS: TSH 1.205 uIU/mL (0.358-3.740)
[2018-08-21 14:49] VITALS: BP 149/83
[2018-08-21 16:32] VITALS: BP 149/83
[2018-08-21] MEDS ORDERED: VITAMIN B-12500 MCG PO (16:52)
[2018-08-21 17:42] VITALS: BP 149/83
== END 2018-08-21 18:52 | disposition home health service (06) | DRG 100 ==
LOC: ER 12:01 → EROBS 14:41 → 4E 14:41
PROVIDERS: Hospitalist; Internal Medicine; Nurse Practitioner Family
DX: G40.909 Epilepsy, unspecified, not intractable, without status epilepticus (principal); G93.41 Metabolic encephalopathy; E87.1 Hypo-osmolality and hyponatremia; F17.210 Nicotine dependence, cigarettes, uncomplicated; S00.83XA Contusion of other part of head, initial encounter; K21.9 Gastro-esophageal reflux disease without esophagitis; G89.29 Other chronic pain; M54.5 Low back pain; M62.84 Sarcopenia; K31.84 Gastroparesis; E53.8 Deficiency of other specified B group vitamins; E03.9 Hypothyroidism, unspecified; F03.90 Unspecified dementia, unspecified severity, without behavioral disturbance, psychotic disturbance, mood disturbance, and anxiety; T42.0X5A Adverse effect of hydantoin derivatives, initial encounter; Z90.710 Acquired absence of both cervix and uterus; Z88.1 Allergy status to other antibiotic agents; Z88.8 Allergy status to other drugs, medicaments and biological substances; Z85.118 Personal history of other malignant neoplasm of bronchus and lung; W18.39XA Other fall on same level, initial encounter; Y93.89 Activity, other specified; Y92.098 Other place in other non-institutional residence as the place of occurrence of the external cause; Y99.8 Other external cause status
CPT/HCPCS: 10183

== ENCOUNTER 2018-10-01 12:57 | Inpatient (IN) | payer OTHER ==
[~2018-10-01] VITALS: Ht 162.6 cm; Wt 45.5 kg
--- NOTE | ~2018-10-01 | EKG ---
[address] [address] ELECTROCARDIOGRAM REPORT Name: SERA VILA Room #: 454-P ADM IN M.R.#: [id number] Admission: 10/01/18 Attend Phys: Kirit Funk MD Discharge: Date of : 43 Report #: [id number] THIS REPORT FOR: //name// [facility] Test Date: 2018-10-01 Test Time: 16:01:07 Pat Name: SERA VILA Department: Room: [facility] Gender: F Union Laborer: ROBYN : 1945 Requested By: Cha Cortes Order Number: [id number] MD: Nicolás Elizabeth Measurements Intervals Swink Rate: 50 P: 79 DE: 170 QRS: 11 QRSD: 92 T: 58 QT: 468 QTc: 427 Interpretive Statements Sinus rhythm Septal infarct, age indeterminate Compared to ECG 08/18/2018 13:40:55 no significant change was found Electronically Signed On 10-02-2018 7:46:11 BUYING INTERN by Nicolás Elizabeth [email or web address] <ELECTRONICALLY SIGNED> By: Nicolás Elizabeth MD, [facility] 10/02/18 0746 D: 11/1600 00 Nicolás Elizabeth MD, FACC /EPI
[~2018-10-01 12:57] MED LIST changes: +LINZESS145 MCG PO; +VITAMIN B-12500 MCG PO
[2018-10-01 12:59] VITALS: BP 116/60
[2018-10-01] MEDS ORDERED: HYDROXYZINE HCL25 M1 PO (13:09)
[2018-10-01] MEDS ORDERED: PROTONIX40 M1 PO (13:09)
[2018-10-01] MEDS ORDERED: ZANAFLEX4 MG PO (13:10)
[2018-10-01] MEDS ORDERED: BENTYL 20 MG TA20 M1 PO (13:10)
[2018-10-01] MEDS ORDERED: SINGULAIR 10 MG10 M1 PO (13:11)
[2018-10-01] MEDS ORDERED: CIPRO500 MG PO (13:12)
[2018-10-01] MEDS ORDERED: PROPRANOLOL 1010 MG PO (13:13)
[2018-10-01 13:30] LABS: ABSOLUTE NEUTROPHILS 2.3 thou/uL (1.4-8.2); BASOPHILS 1.5 % (0.0-2.0); EOSINOPHILS 3.2 % (0.0-3.0); HEMATOCRIT 27.1 % (37.0-47.0); HEMOGLOBIN 9.8 gm/dL (12.0-15.0); LYMPHOCYTES 28.7 % (24.0-44.0); MCH 34.8 pg (26.0-34.0); MCHC 36.4 g/dL (28.0-37.0); MCV 95.7 fL (80.0-100.0); MONOCYTES 11.2 % (1.0-8.0); PLATELET COUNT 386 thou/uL (150-400); POLYS 55.4 % (36.0-66.0); RBC 2.83 mil/uL (4.20-5.00); RDW 12.4 % (10.5-14.5); WBC 4.1 thou/uL (4.0-11.0)
[2018-10-01 13:41] LABS: CALCIUM 8.8 mg/dL (8.5-10.1); CREATININE 0.8 mg/dL (0.6-1.0); POTASSIUM 4.3 mmol/L (3.5-5.1)
[2018-10-01 13:53] LABS: URINE BILIRUBIN NEGATIVE (Negative); URINE BLOOD NEGATIVE (Negative); URINE CLARITY CLEAR; URINE COLOR YELLOW; URINE GLUCOSE-RANDOM* NEGATIVE (Negative); URINE KETONES NEGATIVE (Negative); URINE LEUKOCYTES-REFLEX NEGATIVE (Negative); URINE NITRITE-REFLEX NEGATIVE (Negative); URINE PROTEIN (DIPSTICK) NEGATIVE (Negative); URINE UROBILINOGEN 0.2 E.U./dl (0.2-1.0)
[2018-10-01 14:15] VITALS: BP 95/56
[2018-10-01 15:13] VITALS: BP 116/60
[2018-10-01 15:41] LABS: CALCIUM 8.5 mg/dL (8.5-10.1); CREATININE 0.8 mg/dL (0.6-1.0); PHOSPHORUS 4.4 mg/dL (2.5-4.9)
[2018-10-01 16:40] VITALS: BP 154/90
[2018-10-01 20:00] VITALS: BP 164/94
[2018-10-02 03:49] VITALS: BP 178/96
[2018-10-02 04:52] LABS: HEMATOCRIT 31.6 % (37.0-47.0); MCH 33.3 pg (26.0-34.0); MCHC 34.6 g/dL (28.0-37.0); RBC 3.3 mil/uL (4.20-5.00); RDW 12.2 % (10.5-14.5); WBC 5.5 thou/uL (4.0-11.0)
[2018-10-02 04:53] LABS: ALBUMIN 2.5 g/dL (3.4-5.0); CALCIUM 8.8 mg/dL (8.5-10.1); CREATININE 0.8 mg/dL (0.6-1.0); MAGNESIUM 1.6 mg/dL (1.8-2.4); POTASSIUM 4.1 mmol/L (3.5-5.1); TOTAL BILIRUBIN 0.1 mg/dL (<0.1-1.0); TOTAL PROTEIN 6.4 g/dL (6.4-8.2)
[2018-10-02 08:00] VITALS: BP 183/107
[2018-10-02 10:32] VITALS: BP 143/95
[2018-10-02 15:15] VITALS: BP 178/100
[2018-10-02 19:37] VITALS: BP 146/100
[2018-10-03 03:45] VITALS: BP 157/111
[2018-10-03 08:12] VITALS: BP 160/108
[2018-10-03 10:19] LABS: CALCIUM 9.9 mg/dL (8.5-10.1); CREATININE 0.8 mg/dL (0.6-1.0); MAGNESIUM 1.5 mg/dL (1.8-2.4)
[2018-10-03 15:15] VITALS: BP 153/101
[2018-10-03 17:57] LABS: MAGNESIUM 1.6 mg/dL (1.8-2.4); POTASSIUM 3.7 mmol/L (3.5-5.1)
[2018-10-03 20:24] VITALS: BP 144/99
[2018-10-04 04:00] VITALS: BP 170/97
[2018-10-04 08:00] VITALS: BP 163/92
[2018-10-04 15:21] VITALS: BP 155/89
== END 2018-10-04 17:50 | disposition hospice, home (50) | DRG 917 ==
LOC: ER 12:57 → 4W 14:13 → EROBS 14:13 → 4W 15:13
PROVIDERS: Emergency Medicine; Internal Medicine; Nurse Practitioner
DX: T40.601A Poisoning by unspecified narcotics, accidental (unintentional), initial encounter (principal); E43 Unspecified severe protein-calorie malnutrition; E87.1 Hypo-osmolality and hyponatremia; G93.40 Encephalopathy, unspecified; F32.9 Major depressive disorder, single episode, unspecified; F41.9 Anxiety disorder, unspecified; R00.1 Bradycardia, unspecified; I95.9 Hypotension, unspecified; G89.4 Chronic pain syndrome; D64.9 Anemia, unspecified; G40.409 Other generalized epilepsy and epileptic syndromes, not intractable, without status epilepticus; I10 Essential (primary) hypertension; K31.84 Gastroparesis; M54.5 Low back pain; F03.90 Unspecified dementia, unspecified severity, without behavioral disturbance, psychotic disturbance, mood disturbance, and anxiety; M62.84 Sarcopenia; F17.210 Nicotine dependence, cigarettes, uncomplicated; E53.8 Deficiency of other specified B group vitamins; J44.9 Chronic obstructive pulmonary disease, unspecified; E03.9 Hypothyroidism, unspecified; Z86.73 Personal history of transient ischemic attack (TIA), and cerebral infarction without residual deficits; Y92.89 Other specified places as the place of occurrence of the external cause; Z85.118 Personal history of other malignant neoplasm of bronchus and lung; Z90.49 Acquired absence of other specified parts of digestive tract; Z90.710 Acquired absence of both cervix and uterus; Z79.899 Other long term (current) drug therapy; Z88.1 Allergy status to other antibiotic agents; Z88.8 Allergy status to other drugs, medicaments and biological substances
CPT/HCPCS: 10040; 10045

== ENCOUNTER → 2019-03-26 | Outpatient (CLI) | payer OTHER ==
[~2019-03-26] MED LIST changes: +BENTYL 20 MG TA20 M1 PO; +CIPRO500 MG PO; +PROPRANOLOL 1010 MG PO; +PROTONIX40 M1 PO; +SINGULAIR 10 MG10 M1 PO
== END ==
LOC: NUC 10:40
DX: M81.0 Age-related osteoporosis without current pathological fracture (principal); M48.56XD Collapsed vertebra, not elsewhere classified, lumbar region, subsequent encounter for fracture with routine healing; M47.814 Spondylosis without myelopathy or radiculopathy, thoracic region; M25.78 Osteophyte, vertebrae; Z98.890 Other specified postprocedural states

== ENCOUNTER 2020-02-02 17:00 | Inpatient (IN) | payer OTHER ==
[~2020-02-02] VITALS: Ht 160 cm; Wt 50.8 kg
[~2020-02-02 17:00] MED LIST changes: -LEVOTHYROXINE 0.1 MG PO; +SYNTHROID125 MC1 PO
[2020-02-02 17:36] VITALS: BP 95/66
--- NOTE | 2020-02-02 17:54 | NUR ---
PT ARRIVED ON UNIT A DIRECT ADMIT FROM DR. KNOX'S OFFICE. NURSE CALLED DR. KNOX FOR ADMISSION ORDERS, WAITING FOR A CALL BACK. PT CAME UP TO THE UNIT WITH HER SISTER IN LAW. NURSE EXPLAINED TO PT THERE ARE NO VISITORS ALLOWED ON THE UNIT AT THIS TIME. VISITOR POLITELY LEFT THE UNIT. PT GAVE MEDICATION LIST, REPORTS SHE HAS BEEN HAVING N/V SINCE FRIDAY AND CAN'T HOLD ANYTHING DOWN. NURSE EDUCATED PT ABOUT CALL LIGHT, FALL PRECAUTIONS ARE IN PLACE. PT DENIES TRAVELING OUT OF THE COUNTRY OR HAVING A FEVER IN THE PAST 14 DAYS. PT IS VERY SLEEPY AND WEAK. PT REPORTS SHE JUST WANTS TO GET SOME SLEEP, ITS HARD TO KEEP HER AWAKE TO GET INFORMATION. WILL CONTINUE TO MONITOR.
[2020-02-02 18:40] LABS: ABSOLUTE NEUTROPHILS 7.7 thou/uL (1.4-8.2); BASOPHILS 0.2 % (0.0-2.0); HEMATOCRIT 42.7 % (37.0-47.0); HEMOGLOBIN 14.4 gm/dL (12.0-15.0); LYMPHOCYTES 12.1 % (24.0-44.0); MCH 32.3 pg (26.0-34.0); MCHC 33.8 g/dL (28.0-37.0); MCV 95.7 fL (80.0-100.0); MONOCYTES 10.2 % (1.0-8.0); PLATELET COUNT 440 thou/uL (150-400); POLYS 77.5 % (36.0-66.0); RBC 4.46 mil/uL (4.20-5.00); RDW 12.8 % (10.5-14.5); WBC 9.9 thou/uL (4.0-11.0)
[2020-02-02 19:00] LABS: ALBUMIN 3.2 g/dL (3.4-5.0); ANION GAP 14 mmol/L (7-16); BUN 37 mg/dL (7-18); CALCIUM 10.5 mg/dL (8.5-10.1); CHLORIDE 89 mmol/L (98-107); CO2 26 mmol/L (21-32); CREATININE 2.4 mg/dL (0.6-1.0); GLUCOSE 122 mg/dL (74-106); POTASSIUM 3.1 mmol/L (3.5-5.1); SODIUM 129 mmol/L (136-145); TOTAL BILIRUBIN 0.6 mg/dL (<0.1-1.0); TOTAL PROTEIN 8.7 g/dL (6.4-8.2)
[2020-02-02 19:12] LABS: SGPT < 6 U/L (30-65)
[2020-02-02 19:14] LABS: SGOT 9 U/L (15-37)
--- NOTE | 2020-02-03 02:34 | NUR ---
RECIEVED CARE OF THIS PATIENT AT 1900. PATIENT ALERT AND ORIENTED X4. PATIENT C/O PAIN IN BACK AND ABD, MED GIVEN WITH LITTLE RELIEF. ASKED PATIENT WHAT MAKES PAIN BETTER, SHE STATED NOTHING. PATIENT DROWSY DURING ADMIT PROCESS. SPEAKS VERY SOFTLY AND HARD TO HEAR. IV IN LFA WITH FLUIDS INFUSING. C/O NAUSEA AND VOMITED X1. WHEN MED ORDER OBTAINED PT ASLEEP. DR KNOX WAS CALLED FOR ADMITTING ORDERS AND CODE STATUS. PATIENT SLEPT MOST OF NIGHT.
[2020-02-03 06:50] VITALS: BP 80/54
--- NOTE | 2020-02-03 10:15 | H ---
[facility] [place] [address] HISTORY AND PHYSICAL Name: SERA VILA Room #: 404-P ADM IN M.R.#: [id number] Admission: 02/02/20 Attend Phys: Anthony Cardozo Discharge: Date of : 43 Report #: [id number] THIS REPORT FOR: cc: Raleigh Jang MD,Obed Tejada MD, MD ~ CC: Raleigh Jang DATE OF SERVICE: 02/02/2020 CHIEF COMPLAINT: Abdominal pain. HISTORY OF PRESENT ILLNESS: The patient is a 74-year-old female who was admitted to the office with general illness. She presented with her routine appointment yesterday, but was found to be mildly hypotensive, tachycardic and was complaining of abdominal pain. She was admitted to the hospital and there is really no other specific history and she is a poor historian. Family is not available at the bedside; however, x-ray has been obtained, which suggested a high-grade small-bowel obstruction. PAST MEDICAL HISTORY: Seizure disorder, mild cognitive impairment, chronic back pain. She had an unspecified cancer in the past. Hypothyroidism. PAST SURGICAL HISTORY: Unknown. FAMILY HISTORY: Unknown. SOCIAL HISTORY: Other than living at home is unknown. No known alcohol or tobacco use. ALLERGIES: BUPRENORPHINE and LEVAQUIN. MEDICATIONS: Dicyclomine, Zanaflex, Inderal, Percocet, gabapentin, Keppra, hydroxyzine, Singulair, Lomotil, Protonix, Linzess, levothyroxine. REVIEW OF SYSTEMS: She complains of abdominal pain and back pain. Otherwise, no headache, shortness of breath, chest pain, nausea, vomiting, dysuria, syncope. OBJECTIVE: VITAL SIGNS: Temperature 36.7, pulse 134, respirations 16, blood pressure 80/54, O2 sat 96% on room air. GENERAL: She is awake, but a weak. She has a hard time giving history. HEAD AND NECK: Unremarkable. LUNGS: Clear. HEART: Tachycardic, regular rhythm. [facility] [address] [place] [address] HISTORY AND PHYSICAL Name: SERA VILA Room #: 404-P [facility] IN M.R.#: [id number] Admission: 02/02/20 Attend Phys: Anthony Cardozo Discharge: Date of : 43 Report #: [id number] ABDOMEN: Protuberant, hypoactive bowel sounds. Tender to palpation throughout. EXTREMITIES: No edema. NEUROLOGIC: Speech is slow, but clear. She moves all extremities. LABORATORY DATA: Albumin is 3.2. TSH 0.01. Calcium was 10.5. Initial creatinine was 2.4, potassium 3.1, sodium 129. White count was normal. KUB high-grade partial small-bowel obstruction with dilated small bowel loops identified throughout the mid abdomen. There is no free air noted, previous osteoplasty L1 and L2 and there is a posterior spinous process fixation device. ASSESSMENT: Small-bowel obstruction. PLAN: A CT has been ordered and I have asked Dr. Estrada to see her in consultation. She will need to move to a monitored bed. <ELECTRONICALLY SIGNED> By: Obed Lebron MD 02/03/20 1015 0945 [id number] Obed Lebron MD /nt
--- NOTE | 2020-02-03 10:27 | NUR ---
PT IS AOX4, SPEAKS VERY SOFT AND PAMUNKEY. PT REPORTS PAIN IN THE ABDOMINAL AREA. PT RECEIVED ORAL PAIN ANALGESIC ORDERED WITH SOME RELIEF. PT HAS BM WAS 02/01/20. PT DENIES N/V AT THIS TIME. PT TOLERATING CLEAR LIQUID DIET. IV ON L FA WITH IV FLUIDS RUNNING. NURSE GAVE REPORT TO STEPHAN ON 3W, PT GONE TO CT SCAN THEN WILL TRANSFER TO ROOM 355.
[2020-02-03 10:47] VITALS: BP 73/76
[2020-02-03 12:32] LABS: POTASSIUM 3.4 mmol/L (3.5-5.1)
[2020-02-03 12:33] LABS: CALCIUM 8.5 mg/dL (8.5-10.1)
[2020-02-03 12:34] LABS: CREATININE 3.4 mg/dL (0.6-1.0)
--- NOTE | 2020-02-03 14:58 | NUR ---
1040 pt transfer from 404 to 355. pt alert and oriented x2. Pt lethargic, slow response and poor historian. Pt has NS bolus running due to low blood pressure. BP being checked every 15mins. Pt abdomen distended, hard to touch, hypoactive bowel sounds. pt complains of pain when abdomen is palpated. 1200 DR. MENDEZ AT bedside, Pt agitated and restless during NG tube insertion. soft restrainst put on pt. 600cc drain out of NG. KUB COMPLETED 1300 Pt carrizales pulled on NG, dr. mckeon updated, new NG tube inserted per order. pt more calmer and resting. [address] MCKEON order [address] DR. MCKEON here to see pt. will continue to monitor.
[2020-02-03 15:19] LABS: INR 1.2; PROTIME 12.2 Seconds (9.3-11.4)
[2020-02-03 15:46] VITALS: BP 98/58
--- NOTE | 2020-02-03 18:09 | NUR ---
Pt complains of back pain, DR. NAILA BEACH, TELEPHONE ORDER RECIEVED FOR MORHINE 2MG FOR PAIN OF 1-5, AND MORHINE 4MG FOR PAIN 6-10.
[2020-02-03 19:33] VITALS: BP 78/50
[2020-02-03 23:57] VITALS: BP 95/63
[2020-02-04 03:17] VITALS: BP 101/64
--- NOTE | 2020-02-04 03:25 | NUR ---
Patient making slow progress towards outcome goals. Rhythm tachycardic up to 130's. SBP low 70-90's. Patient denies nausea, no vomiting large amount of green drainage from NGT to LIS. Patient naps after Morphine given for abdominal pain. Continuously attempting to pull at lines, wants NGT out. Very forgetful, unable to remember why NGT has to be maintained. Requires continued uses of soft bilateral wrists restraints.
[2020-02-04 06:04] LABS: HEMATOCRIT 32.6 % (37.0-47.0); MCH 33.4 pg (26.0-34.0); MCHC 34.6 g/dL (28.0-37.0); MCV 96.7 fL (80.0-100.0); RBC 3.37 mil/uL (4.20-5.00); RDW 12.9 % (10.5-14.5); WBC 7.7 thou/uL (4.0-11.0)
[2020-02-04 06:12] LABS: HEMOGLOBIN 11.3 gm/dL (12.0-15.0)
[2020-02-04 06:19] LABS: MAGNESIUM 1.5 mg/dL (1.8-2.4); PHOSPHORUS 3.9 mg/dL (2.5-4.9)
[2020-02-04 06:23] LABS: ALBUMIN 1.9 g/dL (3.4-5.0); CALCIUM 7.1 mg/dL (8.5-10.1); CREATININE 1.5 mg/dL (0.6-1.0); TOTAL BILIRUBIN 0.3 mg/dL (<0.1-1.0); TOTAL PROTEIN 5.9 g/dL (6.4-8.2)
[2020-02-04 06:25] LABS: POTASSIUM 2.7 mmol/L (3.5-5.1)
--- NOTE | 2020-02-04 07:21 | NUR ---
NPO, NGT draining large amount green secretions. Abdormal labs, message left with answering service. Dr Garay financial consultant, awaiting call back.
[2020-02-04 07:46] VITALS: BP 106/65
[2020-02-04 11:34] VITALS: BP 116/74
--- NOTE | 2020-02-04 15:06 | NUR ---
IV TEAM RN REPORT RIGHT UPPER ARM PICC OK TO USE, VERIFIED BY CHEST XRY.
--- NOTE | 2020-02-04 15:14 | NUR ---
INITIAL ASSESSMENT: SW reviewed chart. Pt was admitted from home due to abdominal pain/dehydration. Pt was on [facility] and transferred to yesterday. Pt currently has an NG tube in place for possible SBO. Surgery is following. Pt to have repeat KUB in the morning. SW left voice message for pt's brother/DPOA, [place] to discuss pt's condition prior to admission. Per chart, pt lives at home with her sister. Pt has used [facility] in the past for home health and has been to [facility] for short term rehab. Pt's PCP is Dr. Neil Jang. No weekend discharge planned. SW is following to assist as needed with discharge planning.
[2020-02-04 15:32] VITALS: BP 119/74
--- NOTE | 2020-02-04 16:16 | NUR ---
RISK, BENEFITS, AND ALTERNATIVE TREATMENT DISCUSSED WITH THE DPOA(ISABELLE) RELATED TO PICC PROCEDURE. TEACHING GIVEN RELATED TO POSSIBLE COMPLICATIONS SUCH BLEEDING, INFECTION, CLOT, OR VESSEL PERFORATION. INSTRUCTION GIVEN RELATED TO CLABSI PREVENTION. LITERATURE PROVIDED AND LEFT AT THE BEDSIDE. DOUBLE LUMEN PICC PLACED TO RUE BASILIC VEIN. ONE STICK AND NO COMPLICATIONS. PATIENT TOLERATED WELL. PICC LENGTH =36CM , EXTERNAL LENGTH =1CM. CHEST XRAY COMPLETED WITH PICC IN DISTAL SVC. STERILE DRESSING, STATLOCK, AND BIOPATCH ARE IN PLACE PER PROTOCOL.
[2020-02-04 19:35] VITALS: BP 133/79
[2020-02-04 19:47] LABS: CALCIUM 7.4 mg/dL (8.5-10.1); MAGNESIUM 2.6 mg/dL (1.8-2.4)
[2020-02-04 19:51] LABS: POTASSIUM 5.9 mmol/L (3.5-5.1)
[2020-02-05 03:25] LABS: CALCIUM 8.3 mg/dL (8.5-10.1); CREATININE 0.9 mg/dL (0.6-1.0)
[2020-02-05 03:26] LABS: POTASSIUM 3.1 mmol/L (3.5-5.1)
[2020-02-05 04:01] VITALS: BP 134/91
[2020-02-05 06:18] LABS: HEMATOCRIT 35.5 % (37.0-47.0); MCH 32.2 pg (26.0-34.0); MCHC 33.8 g/dL (28.0-37.0); MCV 95.2 fL (80.0-100.0); RBC 3.73 mil/uL (4.20-5.00); RDW 12.6 % (10.5-14.5); WBC 9.6 thou/uL (4.0-11.0)
[2020-02-05 06:25] LABS: CALCIUM 8.4 mg/dL (8.5-10.1); CREATININE 0.8 mg/dL (0.6-1.0)
[2020-02-05 06:31] LABS: POTASSIUM 2.9 mmol/L (3.5-5.1)
[2020-02-05 07:40] VITALS: BP 141/78
--- NOTE | 2020-02-05 08:34 | NUR ---
PT MAKING SLOW PROGRESS TOWARDS GOALS. NO NAUSEA REPORTED OVERNIGHT. REPORTS MILD ABDOMINAL PAIN 3/10. DOES REPORT BACK AND SHE HAD REPORTED HX OF CHRONIC BACK PAIN. MORPHINE PER ORDERS FOR COMPLAINTS OF BACK PAIN, SEE CHARTING.
[2020-02-05 15:29] VITALS: BP 137/78
[2020-02-05 19:52] VITALS: BP 158/95
--- NOTE | 2020-02-06 04:23 | NUR ---
PT MAKING SLOW PROGRESS TOWARDS GOALS. PT HAS BEEN ABLE TO LEAVE THE NGT IN PLACE OVERNIGHT. SHE HAS BEGGED MULTIPLE TIMES FOR "SOMETHING TO DRINK." C/O NAUSEA ONCE, PARTIALLY RELIEVED WITH DOSE OF ZOFRAN. 900ML OUTPUT VIA NGT. COLOR IS BROWN AND SMELLS LIKE STOOL. OUTPUT TOTAL IS THE NET TOTAL MINUS 100ML OF NGT WATER FLUSH (FOR PATENCY).
[2020-02-06 06:00] VITALS: BP 154/95
[2020-02-06 06:17] LABS: HEMATOCRIT 34.8 % (37.0-47.0); HEMOGLOBIN 11.7 gm/dL (12.0-15.0); MCH 32.5 pg (26.0-34.0); MCHC 33.6 g/dL (28.0-37.0); MCV 96.9 fL (80.0-100.0); RBC 3.6 mil/uL (4.20-5.00); RDW 13.4 % (10.5-14.5); WBC 8.3 thou/uL (4.0-11.0)
[2020-02-06 06:23] LABS: CALCIUM 8.2 mg/dL (8.5-10.1); CREATININE 0.6 mg/dL (0.6-1.0); POTASSIUM 3.7 mmol/L (3.5-5.1)
[2020-02-06 07:28] VITALS: BP 156/98
[2020-02-06 13:19] VITALS: BP 149/94
[2020-02-06 16:44] VITALS: BP 136/90
--- NOTE | 2020-02-06 16:50 | NUR ---
RECIEVED BEDSIDE REPORT FROM SEGUN ERVIN AT 1330 TODAY. PT S/P ABDOMINAL SURHERY WITH MIDLINE INCISION. NGT TO MAGDALENE SIU IN PLACE. PT DENIES PAIN OR SOA AT THIS TIME. WILL CONTINUE TO ASSESS.
[2020-02-06 19:28] VITALS: BP 151/92
--- NOTE | 2020-02-06 19:36 | NUR ---
ASSUMED CARE OF PT AT 0700. PT ALERT AND ORIENTED TIMES FOUR. VSS, IVF INFUSING PER ORDER. PT NPO FOR SURGERY THIS MORNING. BOBBY TO NELSONWS DEXTER, BEVERLY TO GABRIELA. PT DENIES PAIN THIS MORNING BUT KEEPS ASKING FOR "ICE".
[2020-02-06 23:46] VITALS: BP 125/87
[2020-02-07 04:49] VITALS: BP 149/97
[2020-02-07 04:58] LABS: HEMATOCRIT 37.1 % (37.0-47.0); HEMOGLOBIN 12.2 gm/dL (12.0-15.0); MCH 31.9 pg (26.0-34.0); MCHC 32.9 g/dL (28.0-37.0); RBC 3.82 mil/uL (4.20-5.00); RDW 13.2 % (10.5-14.5); WBC 7.8 thou/uL (4.0-11.0)
[2020-02-07 05:08] LABS: CALCIUM 8.1 mg/dL (8.5-10.1); CREATININE 0.7 mg/dL (0.6-1.0)
[2020-02-07 05:14] LABS: POTASSIUM 2.9 mmol/L (3.5-5.1)
--- NOTE | 2020-02-07 06:18 | NUR ---
PT A&O X4 ABLE TO MAKE BASIC NEEDS KNOWN. PT STILL C/O ABD PAIN CONTROLLED VIA PRN MORPHINE. MIDLINE INCISION DERMABOND IN PLACE CDI. PT HAS AN NG TUBE HOOKED TO INTERMMITTENT SUNCTIONING THIS SHIFT EMPTIED TWICE AT HS 1400 APPEARS WAS NOT EMPTIED AT END OF PREVIOUS SHIFT. EMPTIED AGAIN THIS AM AT 0600HRS ANOTHER 1400HRS. PT DENIES N/V. PT CALLS APPROPRIATELY. PT NPO BUT ASING FOR ICE CHIPS OVER NIGHT WHICH SHE COULD HAVE PER PREVIOUS SHIFT NURSE. PAUL CATHETER IN PLACE. CRITICAL K 2.9 AM LAB SURGEON NOTIFIED ELECTROLYTE REPLACED PER PROTOCOL. SINUS TACH ON MONITOR
[2020-02-07 07:20] VITALS: BP 148/98
--- NOTE | 2020-02-07 08:32 | NUR ---
Pt NPO x 4 days without nutrition, today begins day 5. If pt anticipated to continue to require bowel rest for another 2 or more days, REC considering initiation of standard TPN 15% dex, 5% aa, 2.9% lipids slowly advanced over 2 days to goal rate of 60 ml/hr. If TPN started, recommend TPN to continue for at least 5-7 days per ASPEN guidelines.
--- NOTE | 2020-02-07 15:28 | NUR ---
Received consult. SW reviewed chart and spoke with nursing and attending physician. Pt had exploratory lap. on 02/05. Pt has NG tube in place. Therapy ordered to evaluate pt to assist with recommendations for discharge needs. DAMIEN received voice message from pt's sister in law, Charleen. SW returned call. Introduced role of SW. Pt lives at home with her sister, Adry. Prior to admission, pt was not using any DME. Pt has in-home care through [place]. (Friday-Friday for 5-6 hrs/day). Pt's DEIDRE is unsure of name of agency. Pt has used [facility] in the past for home health and has been to [facility] in the past for short term skilled rehab in March of 2013. Pt's PCP is Dr. Neil Jang. Pt's family is agreeable with considering placement if needed or having HH therapy. SW is following to assist as needed with discharge planning.
[2020-02-07 15:39] VITALS: BP 141/93
[2020-02-07 19:44] VITALS: BP 132/84
[2020-02-08 03:42] VITALS: BP 138/89
[2020-02-08 04:47] LABS: HEMATOCRIT 36.8 % (37.0-47.0); MCH 31.6 pg (26.0-34.0); MCHC 32.5 g/dL (28.0-37.0); MCV 97.3 fL (80.0-100.0); RBC 3.78 mil/uL (4.20-5.00); RDW 13.4 % (10.5-14.5); WBC 10.7 thou/uL (4.0-11.0)
[2020-02-08 04:54] LABS: CALCIUM 7.9 mg/dL (8.5-10.1); CREATININE 0.8 mg/dL (0.6-1.0)
[2020-02-08 05:06] LABS: POTASSIUM 2.3 mmol/L (3.5-5.1)
[2020-02-08 07:13] VITALS: BP 136/91
--- NOTE | 2020-02-08 14:37 | NUR ---
DAMIEN reviewed chart and spoke with nursing and attending physician. Pt's diet is slowly being advanced: pt is able to have 1 cup of water every 6 hrs. Pt has NG tube in place. Pt to have KUB today. Therapy is working with pt for recommendation for discharge needs. DAMIEN spoke with pt's [id number], Charleen, via phone to provide update. DAMIEN discussed discharge plan: post-acute placement. Pt's family is agreeable with 5N evaluation to see if pt would meet criteria for inpt acute rehab. DAMIEN explained admission criteria and need for insurance authorization. Pt's DEIDRE verbalized understanding. DAMIEN discussed with attending physician and 5N rehabilitation teacher. Consult ordered. DAMIEN is following to assist as needed with discharge planning.
[2020-02-08 15:35] VITALS: BP 138/92
[2020-02-08 18:54] LABS: BUN 16 mg/dL (7-18); CALCIUM 8.3 mg/dL (8.5-10.1); CHLORIDE 109 mmol/L (98-107); GLUCOSE 112 mg/dL (74-106); SODIUM 159 mmol/L (136-145)
[2020-02-08 19:03] LABS: CO2 > 45 mmol/L (21-32)
[2020-02-08 19:04] LABS: POTASSIUM 2.9 mmol/L (3.5-5.1)
[2020-02-08 20:22] VITALS: BP 102/69
[2020-02-09] VITALS (49 sets, daily range): BP systolic 72–103; BP diastolic 29–70
[2020-02-09 05:25] LABS: HEMATOCRIT 39.4 % (37.0-47.0); HEMOGLOBIN 12.6 gm/dL (12.0-15.0); MCH 31.4 pg (26.0-34.0); MCHC 32.1 g/dL (28.0-37.0); MCV 97.8 fL (80.0-100.0); RBC 4.03 mil/uL (4.20-5.00); RDW 13.7 % (10.5-14.5); WBC 20.9 thou/uL (4.0-11.0)
[2020-02-09 05:30] LABS: BUN 17 mg/dL (7-18); CHLORIDE 112 mmol/L (98-107); CREATININE 1.2 mg/dL (0.6-1.0); GLUCOSE 130 mg/dL (74-106); POTASSIUM 3.7 mmol/L (3.5-5.1)
[2020-02-09 05:34] LABS: SODIUM 161 mmol/L (136-145)
[2020-02-09 05:35] LABS: CO2 > 45 mmol/L (21-32)
--- NOTE | 2020-02-09 08:04 | NUR ---
PT MAKING POOR PROGRESS TOWARDS GOALS. NOTED TREND OF BP IS MILDY FALLING, HEART RATE HAS BEEN TREDING FROM THE 120-130S EARLY IN THE NIGHT TO IN THE 150'S THIS MORNING. NOTED ELEVATED WBC, SLIGHTLY ELEVATED CREATININE AND TRENDING UPWARD IN NGT OUTPUT. NGT OUTPUT TOTAL IS MINUS THE NGT FLUSHES (1600ML). PT WAS ONLY GIVEN (3) 1/2 CUPS OF ICE THROUGHOUT GUIDE CRUISE. AFEBRILE. ONLY NAUSEATED ONCE OVERNIGHT AT THE START OF SHIFT. RESOLVED WITH ZOFRAN.
--- NOTE | 2020-02-09 09:36 | NUR ---
Pt TRANSFERRING TO ICU. WILL PLACE ON HOLD AND AWAIT NEW ORDERS TO RESUME WHEN APPROPRIATE
--- NOTE | 2020-02-09 10:15 | NUR ---
PT TRANSFERED FROM 3W S/P CT SCAN OF CHEST ABD AND PELVIS. COMPLAINING OF 10 OF 10 ABD PAIN. L HAND SPASM POST BP READING. LOW URINE OUTPUT AND SAT 79% ON 4L. DR. KULKARNI CALLED AND UPDATE GIVEN. PT PLACED ON 15L HIGH FLOW. MORPINE 2MG GIVEN. FAMILY UPDATED. PT SISTER IN LAW IS AN/SYQ 13 NAV/C2 OPERATOR AND STATES PT HAS VERY POOR QUALITY OF LIFE. STATES SHE IS ALWAYS IN PAIN FROM ARTRITIS DISPITE CURRENT SURGICAL PAIN. FAMILY DISCUSSING MAKING PT COMFORT CARE. DR. KULKARNI NUMBER GIVEN TO FAMILY AND THIS RN IS WAITING TO HEAR BACK FROM THEM TO SEE HOW AGRESSIVE THEY WANT TO BE. DR. KNOX HERE,, UPDATE GIVEN. CALLED DR. MCKEON WELL AND THOROUGH UPDATE GIVEN TO HIM WELL. DR ANGELA GIVEN ABG RESULTS PER RT.
[2020-02-09 10:22] LABS: BE(vivo) 29.7 mmol/L (-2 to +3); PCO2 58.8 mmHg (35.0-45.0); pH 7.597 (7.360-7.450); sO2 96.7 % (92.0-98.0)
--- NOTE | 2020-02-09 11:38 | NUR ---
DAMIEN reviewed chart and spoke with nursing. Pt was transferred to ICU earlier today due to change in status. Pt's nurse to notify pt's family or room move. 5N is following to evaluate when pt is able to participate with therapy to see if pt would qualify for inpt acute rehab. DAMIEN updated COMPARISON SHOPPER CM. Following to assist as needed with discharge planning.
--- NOTE | 2020-02-09 11:49 | NUR ---
FAMILY CALLED. STATES THEY WANT COMFORT CARE. DR. KULKARNI HERE AND SPOKE WITH PATIENT. STATES WE WILL STILL DO FLUIDS AND ANTIBIOTICS BUT OTHER THAN THAT WE WON'T BE AGRESSIVE . REPORTED PT HR 142, STATES HE WILL ORDER ANOTHER BOLUS AND CALL THE FAMILY.
--- NOTE | 2020-02-09 11:58 | NUR ---
PATIENT TRANSFERED TO ICU EARLIER. REPORT CALLED.
--- NOTE | 2020-02-09 15:20 | NUR ---
PT DESAT [address] COREEN BEACH. PT DISCUSSED BIPAP WITH RT AND PT WANTS TO TRY IT. PLACED ON BIPAP 10/24 70%. RR 34. MORPHINE 4MG SIVP GIVEN FOR PAIN.
[2020-02-09 15:33] LABS: HEMATOCRIT 38.9 % (37.0-47.0); HEMOGLOBIN 12.3 gm/dL (12.0-15.0); MCH 31.2 pg (26.0-34.0); MCHC 31.6 g/dL (28.0-37.0); MCV 98.5 fL (80.0-100.0); RBC 3.95 mil/uL (4.20-5.00); RDW 14.3 % (10.5-14.5); WBC 16.3 thou/uL (4.0-11.0)
--- NOTE | 2020-02-09 15:43 | NUR ---
UPDATED PT BROTHER AND SISTER IN LAW. PT STILL ABLE TO MAKE HER OWN DECISIONS AT THIS TIME. GIVING PT FLUIDS AND ANTIBIOTICS BUT NOT STARTING PRESSORS AT THIS TIME PER DR. KULKARNI.
--- NOTE | 2020-02-09 15:56 | NUR ---
DR. ANGELA UPDATED. NO NEW ORDERS. WANTS THIS RN TO CALL RESULTS OF LAB TO DR. MCKEON.
[2020-02-09 15:59] LABS: ALBUMIN 1.5 g/dL (3.4-5.0); BUN 20 mg/dL (7-18); CALCIUM 7.8 mg/dL (8.5-10.1); CHLORIDE 110 mmol/L (98-107); CREATININE 1.4 mg/dL (0.6-1.0); GLUCOSE 124 mg/dL (74-106); MAGNESIUM 1.9 mg/dL (1.8-2.4); PHOSPHORUS 2.6 mg/dL (2.5-4.9); POTASSIUM 3.4 mmol/L (3.5-5.1)
[2020-02-09 16:05] LABS: CO2 > 45 mmol/L (21-32); SODIUM 161 mmol/L (136-145)
--- NOTE | 2020-02-09 16:29 | NUR ---
CALLED LAB AND GENERAL UPDATE TO DR. MCKEON. REQUEST I REPORT TO DR. KULKARNI WELL. DR. KULKARNI CALLED. LAB GIVEN. UPDATE GIVEN. REPORTED PT MADE DECISION TO GO ON BIPAP. CALLED DAUGHTER AT PT REQUEST NOT DPOA.
--- NOTE | 2020-02-09 18:46 | NUR ---
DR. KULKARNI CALLED RE HR 145 BP 70S SYSTOLIC. ORDERS GIVEN.
[2020-02-09 20:38] LABS: BUN 22 mg/dL (7-18); CHLORIDE 108 mmol/L (98-107); CREATININE 1.5 mg/dL (0.6-1.0); GLUCOSE 103 mg/dL (74-106); POTASSIUM 3.7 mmol/L (3.5-5.1); SODIUM 157 mmol/L (136-145)
[2020-02-09 20:41] LABS: CO2 > 45 mmol/L (21-32)
[2020-02-10] VITALS (34 sets, daily range): BP systolic 64–115; BP diastolic 41–81
[2020-02-10 05:21] LABS: HEMATOCRIT 30.8 % (37.0-47.0); MCH 31.8 pg (26.0-34.0); MCV 99.3 fL (80.0-100.0); RBC 3.11 mil/uL (4.20-5.00); RDW 14.1 % (10.5-14.5); WBC 16.9 thou/uL (4.0-11.0)
[2020-02-10 05:24] LABS: HEMOGLOBIN 9.9 gm/dL (12.0-15.0)
[2020-02-10 05:50] LABS: ALBUMIN 1.3 g/dL (3.4-5.0); BUN 28 mg/dL (7-18); CALCIUM 7.8 mg/dL (8.5-10.1); CHLORIDE 110 mmol/L (98-107); CREATININE 1.5 mg/dL (0.6-1.0); GLUCOSE 100 mg/dL (74-106); POTASSIUM 3.4 mmol/L (3.5-5.1); SGOT 14 U/L (15-37); SGPT 6 U/L (30-65); SODIUM 155 mmol/L (136-145); TOTAL BILIRUBIN 0.3 mg/dL (<0.1-1.0); TOTAL PROTEIN 4.8 g/dL (6.4-8.2)
[2020-02-10 05:55] LABS: CO2 > 45 mmol/L (21-32)
--- NOTE | 2020-02-10 07:34 | NUR ---
Pt received a total of 6 L of fluid overnight. Urine output has improved slightly from 10-20 cc/hr to 30 cc/hr, total for shift is 400 cc. Minimal black-brown NG drainage (50 cc); heparin held until doctor's have seen pt and r/o GI bleed. Pt less hypotensive, SBP remains above 90 and MAP above 60. Pt more alert, moving around in bed more, remains oriented x3-4. Monitor remains sinus tach, but rate is down from 130's to 109-118. Pt still meets sepsis criteria; will continue with plan of care.
--- NOTE | 2020-02-10 09:34 | NUR ---
Has been npo starting day 8. Pulmonary provider has mentioned TPN in progress notes. Recommend 15%dextrose, 5%AA, 2.9% lipids to start 25ml/hr with goal of 55ml/hr. Correct electrolytes. Recommend pharmacy to manage tpn.
[2020-02-10 10:14] LABS: BUN 28 mg/dL (7-18); CALCIUM 7.8 mg/dL (8.5-10.1); CHLORIDE 108 mmol/L (98-107); CREATININE 1.5 mg/dL (0.6-1.0); GLUCOSE 87 mg/dL (74-106); POTASSIUM 3.4 mmol/L (3.5-5.1); SODIUM 152 mmol/L (136-145)
[2020-02-10 10:17] LABS: CO2 > 45 mmol/L (21-32)
--- NOTE | 2020-02-10 13:50 | NUR ---
discussed during los, pt will possible need acute rehab or post acute. pt will need to be able to work with therapy to see what her therapy needs will be. will cont following as needed for dc needs.
[2020-02-10 16:29] LABS: ANION GAP < 0 mmol/L (7-16); BUN 26 mg/dL (7-18); CALCIUM 7.5 mg/dL (8.5-10.1); CHLORIDE 107 mmol/L (98-107); CO2 43 mmol/L (21-32); CREATININE 1.5 mg/dL (0.6-1.0); GLUCOSE 89 mg/dL (74-106); SODIUM 149 mmol/L (136-145)
--- NOTE | 2020-02-10 16:29 | NUR ---
ASSUMED CARE AT 0700, ASSESSMENT AND VITAL SIGNS COMPLETED PER ICU PROTOCOL. DR. KULKARNI RONDED AM, NEW ORDERS RECEIVED AND EXECUTED. DR. MCKEON ROUNDED THIS AM, NEW ORDERS RECEIVED AND EXECTUED. DR. MCKEON PAGED TO BE NOTIFIED OF HIGH GASTRIC RESIDUALS, RN WAITING FOR CALL BACK. DR. ANGELA ROUNED, NO NEW ORDERS RECEIVED.
--- NOTE | 2020-02-10 18:05 | NUR ---
PT TRANSFERED FROM ICU. NG TUBE PATENT TO LIS. FLUIDS AND ABX INFUSING. WILL CONTINUE TO MONITOR.
--- NOTE | 2020-02-11 00:15 | HC ---
[facility] [place] [address] CONSULTATION Name: SERA VILA Room #: 206-P ADM IN M.R.#: [id number] Admission: 02/02/20 Attend Phys: Anthony Cardozo Discharge: Date of : 43 Report #: [id number] THIS REPORT FOR: cc: Raleigh Jang MD,Raleigh Jang,Gucci Laura MD ~ CC: Raleigh Jang DATE OF SERVICE: 02/09/2020 INFECTIOUS DISEASE CONSULTATION REASON FOR CONSULTATION: I was asked to evaluate concerning healthcare-associated pneumonia and sepsis. HISTORY OF PRESENT ILLNESS: The patient is a 74-year-old admitted with abdominal pain and found to have a small-bowel obstruction. She did not open up with conservative measures. Underwent laparotomy and lysis of adhesions on 02/06/2020, Dr. Reggie Mauro. There were no intraoperative complications. Postoperatively, she has been tachycardic and developed further respiratory compromise and was taken down to the ICU this morning. She has been placed on broad-spectrum antibiotic therapy. NG tube remains in place. Unable to take liquid yet. She has had some transient hypotension episodes, has been placed on 10 liters of oxygen per nasal cannula. She has had no stool output. Low urine output. She has put out over 6 liters of NG output over the last 2 days. Continues to have some abdominal pain, but not much distention. Has a loose cough with minimal sputum production. Generalized weakness, but no focal changes. I have discussed with nursing at the bedside. They noticed no other new issues. REVIEW OF SYSTEMS: Ten-point review was negative other than what has been described above. PAST MEDICAL HISTORY: COPD, lung cancer, right upper lobectomy, gastroesophageal reflux, depression, anxiety, chronic back pain, fibromyalgia, gastroparesis, hypothyroidism, hyperlipidemia, seizure disorder, cholecystectomy, hysterectomy. ALLERGIES: LEVAQUIN, BUPRENORPHINE. MEDICATIONS: As noted on her MAR FAMILY HISTORY: No tuberculosis. SOCIAL HISTORY: She was a smoker of cigarettes, having quit several years ago with no alcohol use. [facility] [address] [facility] [place] [address] CONSULTATION Name: SERA VILA Room #: 206-P [facility] IN M.R.#: [id number] Admission: 02/02/20 Attend Phys: Anthony Cardozo Discharge: Date of : 43 Report #: [id number] PHYSICAL EXAMINATION: VITAL SIGNS: Currently afebrile, blood pressure in the 80 systolic, heart rate 120. SKIN: Without rash or decubitus. No palpable adenopathy. HEENT: Eyes without scleral icterus and mouth without mucositis. She had an NG tube in place. NECK: Supple. GENERAL: She is thin and frail. LUNGS: Coarse breath sounds bilaterally with no consolidation. HEART: Tachycardic and regular. ABDOMEN: Soft, diffusely tender. Midline abdominal incision well approximated. GENITOURINARY: External genitalia without lesion and indwelling Balbuena catheter. RECTAL: Not performed. EXTREMITIES: Without clubbing, cyanosis or edema. NEUROLOGIC: Cranial nerves were intact and strength in the upper and lower extremities was symmetric. Sensation is within normal limits. LABORATORY STUDIES: Reviewed. MICROBIOLOGY: Reviewed. CHEST X-RAY: Reviewed. IMPRESSION: 1. Healthcare-associated aspiration pneumonia with respiratory failure in the setting of high-grade small-bowel obstruction, status post exploratory laparotomy and lysis of adhesions; now postoperative day #3. 2. She has high volume nasogastric output, ileus versus recurrent small-bowel obstruction with metabolic alkalosis. 3. She has acute kidney injury and respiratory compromise now with pending failure. 4. Hypothyroidism. RECOMMENDATIONS: We will continue broad antibiotic coverage and ICU support. Agree with current plan so far for fluid resuscitation and concerned about the high volume NG output at this point. We will await cultures and adjust antibiotics accordingly. I discussed the case with nursing staff, Pulmonary Medicine and attending. <ELECTRONICALLY SIGNED> By: Gcuci Jang MD 02/11/20 0015 [id number] Gucci Jang MD /nt
[2020-02-11 00:46] VITALS: BP 92/61
--- NOTE | 2020-02-11 03:58 | NUR ---
PT RESTING QUIETLY ON AND OFF PRN PAIN MED GIEVEN FOR C/O ABD PAIN, BIPAP ON TILL 329 NOW ON 8L/NC WITH CONT PULSE OX 99% CT HCAP ABX GIVEN, PAUL WITH CLR YELLOW URINE, VSS, TURNING Q 2 HRS NEEDED, NG TO LIS WITH SRK BROWN DRAINAGE, ABD INCISION GRABIEL CDI, WILL CON'T TO MONITOR PER PPOC.
[2020-02-11 04:45] VITALS: BP 130/56
[2020-02-11 07:08] LABS: HEMATOCRIT 27.3 % (37.0-47.0); HEMOGLOBIN 8.8 gm/dL (12.0-15.0); MCH 31.6 pg (26.0-34.0); MCHC 32.3 g/dL (28.0-37.0); MCV 97.6 fL (80.0-100.0); RBC 2.8 mil/uL (4.20-5.00); RDW 13.7 % (10.5-14.5); WBC 16.6 thou/uL (4.0-11.0)
[2020-02-11 07:17] LABS: CALCIUM 7.9 mg/dL (8.5-10.1); CREATININE 1.6 mg/dL (0.6-1.0); POTASSIUM 3.2 mmol/L (3.5-5.1)
[2020-02-11 08:26] VITALS: BP 98/57
[2020-02-11 12:22] VITALS: BP 99/66
--- NOTE | 2020-02-11 15:04 | NUR ---
5N following for acute rehab reports need therapy evals to resume appears patient good candidate for acute rehab. 5N would need to submit for auth with [employer].
[2020-02-11 16:53] VITALS: BP 93/62
--- NOTE | 2020-02-11 17:49 | NUR ---
ASSUMED CARE 0700. ALERT X3 FORGETFUL, VSS, DENIES CHEST PAIN, DENIES SOB, NG IN PLACE AT 55CC CLAMPED PER DR MCKEON ORDERS AT 1100 WITH RESIDUAL Q6HR 110CC AT 1700. PAUL PATIENT NO BM. DR KNOX NOTIFIED OF CRITICAL VAN TROUGH WITH ORDERS RECIEVED. COMPLIANT WITH NPO, WET ORAL SPONGED OFFERED. CALL LIGHT AND PERSONAL ITEMS IN REACH. STAFF ANTICIPATE NEEDS. INCISION SITE INTACT. FALL PRECATIONS IN PLACE.
[2020-02-11 20:00] VITALS: BP 106/56
[2020-02-12 04:00] VITALS: BP 125/80
--- NOTE | 2020-02-12 04:53 | NUR ---
ASSUMED PT CARE AT 1900. PT IS ALERT BUT CONFUSED/FORGETFUL. NO SIGN OF DISTRESS NOTED. FALL PRECAUTION IN PLACE. ASSESSMENT COMPLETED AND DOCUMENTED. SCHEDULED MEDS ADMINISTERED TO PT. PAUL IN PLACE. ABDOMINAL INCISION INTACT. PT HAD A BOWEL MOVEMENT (LOOSE STOOL X3). CONTINUE TO MONITOR PT. PT IS STABLE THROUGH OUT THE NIGHT. DENIES ANY FURTHER NEEDS AT THIS TIME.
[2020-02-12 06:45] LABS: MAGNESIUM 1.2 mg/dL (1.8-2.4); PHOSPHORUS 2.3 mg/dL (2.5-4.9)
[2020-02-12 07:30] VITALS: BP 128/72
[2020-02-12 09:37] LABS: HEMATOCRIT 25.2 % (37.0-47.0); HEMOGLOBIN 8.2 gm/dL (12.0-15.0); MCHC 32.4 g/dL (28.0-37.0); MCV 98.7 fL (80.0-100.0); RBC 2.55 mil/uL (4.20-5.00); RDW 14.1 % (10.5-14.5); WBC 10.6 thou/uL (4.0-11.0)
[2020-02-12 10:37] LABS: CALCIUM 7.8 mg/dL (8.5-10.1); CREATININE 1.5 mg/dL (0.6-1.0); POTASSIUM 3.1 mmol/L (3.5-5.1)
[2020-02-12 15:10] VITALS: BP 111/64
--- NOTE | 2020-02-12 18:00 | NUR ---
ASSUMED CARE AT SHIFT CHANGE, ALERT AND ORIENTED. AND ASSESSMENT DOCUMENTED. S/B DR Noe AND NOTIFIED ABOUT PATIENT MULTIPLE LOOSE STOOLS, IMMODIUM PRESCRIPED, AND DR MCKEON HAS CANCELLED THE ORDER. DR MCKEON NOTIFIED ABOUT THE PATIENT DIARRHHEA. VSS, AFEBRILE, AND SA ON THE MONITOR AND WILL CONTINUE WITH POC.
[2020-02-12 20:21] VITALS: BP 136/78
[2020-02-13 05:00] VITALS: BP 146/71
[2020-02-13 05:40] LABS: CALCIUM 7.3 mg/dL (8.5-10.1); CREATININE 1.3 mg/dL (0.6-1.0); POTASSIUM 3.7 mmol/L (3.5-5.1)
--- NOTE | 2020-02-13 06:16 | NUR ---
PATIETNS CARES WERE ECIEVED AT SHIFT CHANGE. PATIENT WAS ASSESSED MEDS WERE PASSED. THIS PATIENT IS A PLEASENT AND VERY TALKATIVE. HOURLY ROUNDS WERE DONE THIS LADY BELIEVES SHE IS GOING HOME TODAY. THE BED IS IN A LOW AND LOCKED POSITION.
[2020-02-13 08:23] VITALS: BP 138/72
[2020-02-13 10:57] VITALS: BP 116/55
[2020-02-13 15:08] VITALS: BP 140/80
--- NOTE | 2020-02-13 18:34 | NUR ---
ASSUMED CARE AT SHIFT CHANGE, ALERT AND ORIENTED, AND FORGETFUL. ASSESSMENT CHARTED AND VSS. SR ON THE MONITOR. PATIENT PULLED PICC LINE AROUND 1800, AND NEW IV STABLASHED. MEDICATED FOR PAIN, AND Q2 POSITIONED FOR COMFORT. AND WILL CONTINUE WITH POC.
[2020-02-13 19:53] VITALS: BP 132/72
[2020-02-14 05:12] VITALS: BP 132/75
--- NOTE | 2020-02-14 07:26 | NUR ---
PATIENTS CARES WERE ASSUMED AT SHIFT CHANGE. PATIENT WAS ASSESSED AND MEDS WERE TAKEN. PATIENT CONTINUES TO BE VERY CONFUSED DURING THE TWENTY ONE DEALER. PATIENT WAS GIVIN PAIN MEDS FOR HER BACK, PASS TO THE DAY SHIFT FOR POSSIBLE ASSOCIATE PROFESSOR PAIN MEDICATIONS. HOURLY ROUNDS WERE DONE. THE BED IS IN A LOW AND LOCKED POSITION
[2020-02-14 07:34] VITALS: BP 130/73
[2020-02-14 11:48] VITALS: BP 119/69
[2020-02-14 15:05] LABS: HEMATOCRIT 30.2 % (37.0-47.0); HEMOGLOBIN 9.8 gm/dL (12.0-15.0); MCH 31.1 pg (26.0-34.0); MCHC 32.4 g/dL (28.0-37.0); MCV 96.1 fL (80.0-100.0); RBC 3.14 mil/uL (4.20-5.00); RDW 13.6 % (10.5-14.5); WBC 17.3 thou/uL (4.0-11.0)
[2020-02-14 15:25] LABS: ALBUMIN 1.8 g/dL (3.4-5.0); CALCIUM 7.6 mg/dL (8.5-10.1); CREATININE 1.2 mg/dL (0.6-1.0); MAGNESIUM 1.4 mg/dL (1.8-2.4); PHOSPHORUS 3.2 mg/dL (2.5-4.9); POTASSIUM 3.8 mmol/L (3.5-5.1)
[2020-02-14 16:11] VITALS: BP 112/72
[2020-02-14 19:38] VITALS: BP 124/70
[2020-02-15 04:25] VITALS: BP 111/71
[2020-02-15 04:59] LABS: HEMOGLOBIN 8.5 gm/dL (12.0-15.0); MCH 31.8 pg (26.0-34.0); MCHC 32.8 g/dL (28.0-37.0); MCV 96.8 fL (80.0-100.0); RBC 2.69 mil/uL (4.20-5.00); RDW 13.4 % (10.5-14.5); WBC 14.9 thou/uL (4.0-11.0)
[2020-02-15 05:03] LABS: CALCIUM 7.4 mg/dL (8.5-10.1); CREATININE 1.1 mg/dL (0.6-1.0); POTASSIUM 3.5 mmol/L (3.5-5.1)
--- NOTE | 2020-02-15 06:24 | NUR ---
Pt. slept fair during the night. Requested pain med at HS and again this am for back pain and verbalized some relief. She is very RINCON and gets confused. Frequently reoriented. Bed alarm on for safety. Maintaining O2 sat greater than 90% on 3L/NC. No respiratory distress. Afebrile. Up with assist to bathroom or commode x1. Mid abdominal incision well approximated and healing well. Making progress towards care plan goals.
[2020-02-15 08:05] VITALS: BP 116/65
[2020-02-15] MEDS ORDERED: IPRAT-ALBUT 0.5-3 ML INH (08:21)
[2020-02-15] MEDS ORDERED: AUGMENTIN 500-1 EACH PO (08:21)
[2020-02-15] MEDS ORDERED: NORCO 7.5-3251 EACH PO (08:22)
[2020-02-15] MEDS ORDERED: ROBITUSSIN100 MG/53 PO (08:22)
[2020-02-15] MEDS ORDERED: METAMUCIL FIBE3.4 GM PO (08:23)
[2020-02-15] MEDS ORDERED: PREDNISONE 20 M20 M1 PO (08:24)
[2020-02-15] MEDS ORDERED: PERCOCET 10-321 EACH PO (08:35)
--- NOTE | 2020-02-15 10:07 | NUR ---
[facility] accepting of patient and attempting to rec auth with insurance. Attempted to call patient in room and no answer. Sp with DEIDRE Villaseñor and updated she reports she strongly hopes insurance will auth acute rehab. She reports patient does not want to do to a nursing facility. She wants patient to rehab on [facility] with shorter time 7-10 days so she can return home sooner. She reports skilled will likely keep her 3 weeks. Casemgt following.
--- NOTE | 2020-02-15 10:39 | NUR ---
PT ASSESSED THIS AM, VSS, ALERT AND ORIENTED X 3, ABLE TO USE CALL LIGHT, AND UP TO BSC WITH ASSIST, BRIEFS ON PT TO HELP PREVENT SOILING HER CLOTHES OR ANY ACCIDENTS, PT C/O BACK PAIN, VOLTARIN GEL APPLIED AFTER BEDBATH, WILL MONITOR PAIN, PT HAD 3 DIARRHEA STOOLS SINCE 7AM, WILL MONITOR.
--- NOTE | 2020-02-15 13:43 | NUR ---
ASSUMED CARE OF PT APPROX 1300. SHE IS A&0X4, SLIGHTLY FORGETFUL THUS FAR. IN IMMENSE PAIN WITH CHRONIC BACK PAIN. WILL ADM PAIN MED AND WRITE ON BOARD WHEN DUE SO SHE CAN CALL US FOR HER NEEDS. SEE SEPARATE INTERVENTIONS FOR ASSESSMENTS. PT ASKING FOR PEPSI. OFFERED OUR BRAND OF SODA. SOFT SPOKEN. BED ALARM ON. JUST HAD BM THIS SHIFT. ENCOURAGED HER TO USE CALL LIGHT FOR NEEDS. ASKING FOR MANY THINGS ALL IN ONE SETTING; IMPATIENT. ENCOURAGED HER WE'D COVER ONE THING AT A TIME AND GET HER NEEDS MET. NO IV AND REPORT THAT ALL PHYSICIANS AWARE. SHE'D REMOVED HER PICC LINE THIS ADMISSION AND REPORTS OF CURRENT IV NO LONGER PATENT SO IT'S BEEN REMOVED. ALSO REPORTS OF EVAL FOR 5[facility], OR SHE CAN MOVE TO MED SURG FLOOR ALSO POSSIBLE FACILITY PENDING.
--- NOTE | 2020-02-15 14:33 | NUR ---
PATIENT DETERMINED TO BE APPROPRIATE CANDIDATE FOR 5[facility]/ACUTE REHAB. AUTHORIZATION FOR ACUTE REHAB STAY REQUESTED THIS DATE FROM PATIENT'S INSURANCE, [employer]. AWAITING RESPONSE. BODY STRAIGHTENER INFORMED.
--- NOTE | 2020-02-15 16:08 | NUR ---
At this time no auth for [facility] acute zach likely in am. notified unit.
[2020-02-15 16:20] VITALS: BP 106/63
[2020-02-15 20:20] VITALS: BP 122/72
--- NOTE | 2020-02-16 05:07 | NUR ---
ASSUMED PT CARE AROUND 1900 AND PT HAD C/O PAIN IN BACK AND LOWER BACK AND ABD. PT ONLY FELT PARTIAL RELEF FROM PAIN MEDICATIONS. PT VSS WITH NO C/O SOA. PT DID NOT REST THRU NIGHT WITH C/O LOWER BACK PAIN. PT REPOSITIONED AND PAIN MEDICATIONS GIVEN. PT IS PLANNING TO DISCHARGE TO 5N OR REHAB FACILITY. WILL CONTINUE TO MONITOR PT PER PLAN OF CARE.
[2020-02-16 06:00] VITALS: BP 112/58; BP 117/65
[2020-02-16 07:30] VITALS: BP 103/67
--- NOTE | 2020-02-16 08:14 | NUR ---
[facility]. PEER TO PEER OPTION AVAILABLE BY CALLING . PEER TO PEER MUST BE COMPLETED BY 02/21/20 BY 11:00 AM [facility]. REFERENCE NUMBER [id number]. SNF WAS RECOMMENDED. DENIAL REASON WAS THAT REQUEST LACKED SUPPORT OF NEED FOR LEVEL OF CARE. TOBACCO STRIPPER HAND INFORMED. THANK YOU FOR THIS REFERRAL.
--- NOTE | 2020-02-16 08:17 | NUR ---
ASSUMED CARE OF PT AT SHIFT CHANGE, A&0X4 AND IMMEDIATELY FORGETFUL, ASKS FOR THINGS TO BE DONE FOR HER SHE CAN DO. STATES, 'I WANT TO JUST GO HOME AND LET THE CAREGIVERS DO THINGS FOR ME'. SHE'S CAPABLE OF PUTTING CREAM ON HER STOMACH, REACHING FOR HER DRINK YET ASKS FOR STAFF TO DO SO THEN SHOWS SUCCESS WHEN ASKED TO DO SO HERSELF. BACK PAIN IS GREAT. PAIN MED EVERY 6 HOURS, WILL ALERT PHYSICIAN. POSSIBLE D/C TO 5N TODAY. GOOD APPETITE THIS A.M. SEE SEPARATE INTERVENTIONS FOR ASSESSMENTS. DOES NOT WEAR 02 AT HOME, ON 3L HERE, SATTING 97% SO TURNED DOWN TO 2L. ENCOURAGED HER TO USE CALL LIGHT FOR ANY NEEDS AND SHE DOES. ALSO PT STATES SHE FEELS SHE EXACERBATED HER BACK PAIN BY LIFTING A LOCK BOX ABOUT A MONTH AGO.
--- NOTE | 2020-02-16 09:51 | NUR ---
Insurance denied acute rehab. Notified Dr Neil Jang and Charleen JIANG. Charleen reports she is primary contact and keeps all mutliple family members updated. She reports she is to youngest son. 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 She reports they all defer information to her. Discussed skilled care and DIL agreeable to referral to [facility] where Dr Neil Jang can follow patient and familiar with her care. DC category planner faxed referral with request of obtaining auth today.
--- NOTE | 2020-02-16 10:47 | NUR ---
FAXED REFERRAL TO [facility] SPOKE WITH GUERA IN ADM HE RECEIVED REFERRAL AND CAN ACCEPT WILL SUBMIT FOR AUTH. DP TO FOLLOW.
--- NOTE | 2020-02-16 11:27 | NUR ---
[facility] RECEIVED AUTH. FAXED DC ORDERS/SUMMARY TO FACILITY SPOKE WITH GUERA IN ADM HE RECEIVED ORDERS AND ARRANGED TRANSPORT BY [facility] FOR [id number]. NOTIFIED PT'S FAMILY (CHOCO) OF DC SHE WAS CONCERNED FACILITY ALLOWED SMOKING AND I SPOKE WITH FACILITY THEY ARE NON SMOKING AND LET CHOCO KNOW ALSO. UNIT NOTIFIED AND CHART COPY PER US. RN TO CALL REPORT TO [phone].
== END 2020-02-16 13:43 | DRG 853 ==
LOC: 4N 17:00 → 2N 17:00 → 3W 17:00 → ICU 02-09 09:40 → 2N 02-10 16:01
PROVIDERS: Internal Medicine Geriatric Medicine; Internal Medicine Pulmonary Disease; Surgery; ADMIT Internal Medicine
PROC: 0DN80ZZ Release Small Intestine, Open Approach (ICD-10-PCS; principal; 2020-02-06)
PROC: 0WJP0ZZ Inspection of Gastrointestinal Tract, Open Approach (ICD-10-PCS; principal; 2020-02-06)
DX: A41.9 Sepsis, unspecified organism (principal); G93.41 Metabolic encephalopathy; J69.0 Pneumonitis due to inhalation of food and vomit; E43 Unspecified severe protein-calorie malnutrition; J96.01 Acute respiratory failure with hypoxia; K56.609 Unspecified intestinal obstruction, unspecified as to partial versus complete obstruction; N17.9 Acute kidney failure, unspecified; Z68.1 Body mass index [BMI] 19.9 or less, adult; E87.1 Hypo-osmolality and hyponatremia; J44.9 Chronic obstructive pulmonary disease, unspecified; K21.9 Gastro-esophageal reflux disease without esophagitis; F32.9 Major depressive disorder, single episode, unspecified; F41.9 Anxiety disorder, unspecified; M54.9 Dorsalgia, unspecified; G89.29 Other chronic pain; M79.7 Fibromyalgia; E11.43 Type 2 diabetes mellitus with diabetic autonomic (poly)neuropathy; K31.84 Gastroparesis; E03.9 Hypothyroidism, unspecified; E78.5 Hyperlipidemia, unspecified; G40.909 Epilepsy, unspecified, not intractable, without status epilepticus; I95.9 Hypotension, unspecified; E87.6 Hypokalemia; Z90.49 Acquired absence of other specified parts of digestive tract; Z90.710 Acquired absence of both cervix and uterus; Z88.1 Allergy status to other antibiotic agents; Z88.8 Allergy status to other drugs, medicaments and biological substances; Z79.899 Other long term (current) drug therapy
CPT/HCPCS: 10078; 10081; 10194; 10790; 10879; 27000; 50101; 50386; 50445; 54118; 56525; 56526; 56528; 57092; 62110; 62900; 70005

== ENCOUNTER 2020-03-08 16:01 | Inpatient (IN) | payer OTHER ==
[~2020-03-08] VITALS: Ht 160 cm; Wt 44.1 kg
[~2020-03-08 16:01] MED LIST changes: +AUGMENTIN 500-1 EACH PO; +IPRAT-ALBUT 0.5-3 ML INH; +METAMUCIL FIBE3.4 GM PO; +NORCO 7.5-3251 EACH PO; +PREDNISONE 20 M20 M1 PO; +ROBITUSSIN100 MG/53 PO
[2020-03-08 16:06] VITALS: BP 128/77
[2020-03-08 17:04] LABS: ABSOLUTE NEUTROPHILS 5.6 thou/uL (1.4-8.2); BASOPHILS 1.1 % (0.0-2.0); EOSINOPHILS 1.7 % (0.0-3.0); HEMATOCRIT 22.4 % (37.0-47.0); HEMOGLOBIN 7.7 gm/dL (12.0-15.0); LYMPHOCYTES 20.2 % (24.0-44.0); MCH 34.1 pg (26.0-34.0); MCHC 34.3 g/dL (28.0-37.0); MCV 99.6 fL (80.0-100.0); MONOCYTES 9.8 % (1.0-8.0); PLATELET COUNT 381 thou/uL (150-400); POLYS 67.2 % (36.0-66.0); RBC 2.25 mil/uL (4.20-5.00); RDW 16.8 % (10.5-14.5); WBC 8.3 thou/uL (4.0-11.0)
[2020-03-08 17:20] LABS: ALBUMIN 1.7 g/dL (3.4-5.0); TOTAL BILIRUBIN 0.2 mg/dL (<0.1-1.0)
[2020-03-08 17:23] LABS: URINE BILIRUBIN NEGATIVE (Negative); URINE BLOOD NEGATIVE (Negative); URINE CLARITY CLEAR; URINE COLOR YELLOW; URINE GLUCOSE-RANDOM* NEGATIVE (Negative); URINE KETONES NEGATIVE (Negative); URINE LEUKOCYTES-REFLEX TRACE (Negative); URINE NITRITE-REFLEX NEGATIVE (Negative); URINE PROTEIN (DIPSTICK) TRACE (Negative); URINE SPECIFIC GRAVITY 1.025 (1.005-1.035); URINE UROBILINOGEN 0.2 E.U./dl (0.2-1.0)
[2020-03-08 17:24] LABS: CALCIUM 5.7 mg/dL (8.5-10.1)
--- NOTE | 2020-03-08 21:09 | NUR ---
MAGNESIUM 0.5 RECEIVED BY LAB REPORTED TO PROVIDER
--- NOTE | 2020-03-08 22:58 | NUR ---
PATIENT REFUSING NG TUBE PLACEMENT
--- NOTE | 2020-03-08 23:14 | NUR ---
SAGRARIO SANFORD NOTIFIED OF PT REFUSAL OF NG TUBE
--- NOTE | 2020-03-09 01:22 | NUR ---
ATTEMPTED TO PLACE NGT, PATIENT NING STAFF AND IS REFUSING TX AT THIS TIME. NURSING STAFF INFORMED PATIENT OF RISKS ASSOCIATED, TO WHICH PATIENT CONTINUE TO REFUSED.
--- NOTE | 2020-03-09 01:39 | NUR ---
BOOKER CONTACTED REGARDING ATTEMPTED NG INSERTION. O2 SATS ARE NOW 95 ON ROOM AIR
[2020-03-09 05:32] LABS: HEMATOCRIT 26.1 % (37.0-47.0); HEMOGLOBIN 8.7 gm/dL (12.0-15.0); MCH 33.5 pg (26.0-34.0); MCHC 33.4 g/dL (28.0-37.0); MCV 100.5 fL (80.0-100.0); RBC 2.6 mil/uL (4.20-5.00); RDW 16.4 % (10.5-14.5); WBC 7.3 thou/uL (4.0-11.0)
[2020-03-09 05:42] LABS: CALCIUM 6.1 mg/dL (8.5-10.1); CREATININE 0.8 mg/dL (0.6-1.0); POTASSIUM 3.2 mmol/L (3.5-5.1)
[2020-03-09 08:40] LABS: CREATININE 0.8 mg/dL (0.6-1.0)
--- NOTE | 2020-03-09 09:26 | NUR ---
PT STATED SHE WAS HUNGRY. IT WAS EXPLAINED THAT SHE SHOULD NOT HAVE FOOD DUE TO HER CURRENT BOWEL OBSTRUCTION. PT CONTINUED TO REFUSE THE ADMINISTRATION OF THE NG TUBE.
[2020-03-09 12:50] VITALS: BP 134/84
[2020-03-09 13:03] VITALS: BP 146/97
--- NOTE | 2020-03-09 18:18 | NUR ---
75 YO FEMALE ADMITTED FROM ED TO 443. A&O TO SELF AND PLACE. IV INFUSING NS IN R WRIST W/O COMPS. AMBULATES WITH STAND BY ASSIST. PT IS IMPULSIVE AND WILL NOT WAIT FOR HELP TO GET TO GO TO THE BATHROOM. CALL LIGHT W/R REACH, BED ALARM IS ON. PT IS HAVING LOOSE STOOLS.
[2020-03-09 19:00] VITALS: BP 134/73
--- NOTE | 2020-03-10 02:52 | NUR ---
ASSESSED AT START OF SHIFT PT A&OX2 FORGETFULL AND WANTING TO GO HOME. PT RE-ORIENTED EVENING MEDS GIVEN. PT IMPULSIVE GETS UP FROM THE BED WITHOUT CALLING. UP WITH ASSISTX1 TO THE BSC. HAD 2BM'S THIS SHIFT. PAIN MED GIVEN FOR BACK PAIN. FALL PREC IN PLACE AND FREQ ROUNDING DONE. WILL CONT WITH POC TILL EOS.
[2020-03-10 07:26] VITALS: BP 128/70
[2020-03-10 08:12] LABS: HEMATOCRIT 21.7 % (37.0-47.0); HEMOGLOBIN 7.4 gm/dL (12.0-15.0); MCH 33.9 pg (26.0-34.0); MCHC 33.9 g/dL (28.0-37.0); MCV 100.1 fL (80.0-100.0); RBC 2.17 mil/uL (4.20-5.00); RDW 16.4 % (10.5-14.5); WBC 6.1 thou/uL (4.0-11.0)
[2020-03-10 08:45] LABS: CREATININE 0.6 mg/dL (0.6-1.0)
[2020-03-10 09:03] LABS: CALCIUM 5.7 mg/dL (8.5-10.1); POTASSIUM 2.7 mmol/L (3.5-5.1)
[2020-03-10 11:34] LABS: % SATURATION 25 % (20-39); IRON 23 ug/dL (50-170); TIBC 92 ug/dL (250-450)
[2020-03-10 12:37] LABS: FOLIC ACID 4.5 ng/mL (8.6-58.9)
[2020-03-10 15:43] VITALS: BP 146/89
--- NOTE | 2020-03-10 16:17 | NUR ---
PT ADMITTED RELATED TO SBO, HYPOCALCEMIA, HYPOKALEMIA. CM REVIEWED CHART AND SPOKE WITH CARE TEAM. CM ATTEMPTED PC TO PT IN ROOM WITH NO ANSWER. CM CALLED AND SPOKE WITH BROTHER/DPOA BUD. HE INDICATED THAT PT RESIDES IN A HOUSE WITH HER SISTER NARESH [phone]. HE INDICATED THERE ARE NO STEPS TO ENTER AND NONE INSIDE. HE INDICATED PT HAS A FWW AND A BSC FOR USE AT HOME. PT HAS HCBS 7.5 HRS PER DAY MON-FRI. CM CALLED AND SPOKE WITH CHOCO SANTILLAN'S SISTER IN LAW WHO IS A RETIRED SPRINKLER FITTER APPRENTICE AND HELPS MANAGE PT'S CARE. SHE STATED THAT PT HAD GONE TO [facility] 02/15 AND LEFT AMA ON 02/20. WE WILL AWAIT RECOMMENDATIONS FOR NEEDS UPON DC. FAMILY INDICATED THAT THEY WOULD APPRECIATE HH AND TRANSPORT. CM TO FOLLOW INDICATED WITH DC PLANNING. IT IS ANTICPATED THAT PT WILL BE HERE OVER WEEKEND.
[2020-03-10 19:45] VITALS: BP 144/81
--- NOTE | 2020-03-10 20:24 | NUR ---
ASSUMED CARE AT 0700. PT ANGRY AND STATING "SHE WANTS TO GO HOME AND WANTS TO GET DRESSED RIGHT NOW". RN UNABLE TO REASON WITH PT AT THIS TIME. PT IS ALERT AND ORIENTED TO SELF, TIME. WON'T ANSWER ANY OTHER QUESTIONS. NO OTHER COMPLAINTS AT THIS TIME. PIV INFUSING WITHOUT ISSUES. ELECTOLYTES REPLINISHED AND WILL MONITOR. TOLERATING CLEARS. 2 LOOSE STOOLS NOTED. NEW ORDERS ACKNOWLEDGED AND POC REVIEWED. WILL CONTINUE TO MONITOR
--- NOTE | 2020-03-11 04:30 | NUR ---
PATIENT AOX2 CONFUSED AND FORGETFUL. PAIN CONTROLLED THIS SHIFT. PATIENT HAD LOOSE STOOLS X2. PATIENT INCONTINENT OF BOWEL AND BLADDER THIS SHIFT. PERICARE AND BARRIER CREAM APPLIED NEEDED. PATIENT ON CLEAR LIQUID AND TOLERATED WELL. PATIENT USES BEDSIDE COMMODE THIS SHIFT. PATIENT IS A FALL RISK, FALL PRECAUTION IN PLACE. PATIENT NEEDS MINIMUM ASSISTANCE WITH ADL, BED MOBILITY, TRANSFER AND TOILETING. PATIENT FIXINATED ON GOING HOME IN THE AM.PATIENT IN BED ASLEEP AT THIS TIME BREATHING REGULAR AND UNLABOURED.
[2020-03-11 07:38] LABS: HEMATOCRIT 25.7 % (37.0-47.0); HEMOGLOBIN 8.6 gm/dL (12.0-15.0); MCH 33.3 pg (26.0-34.0); MCHC 33.5 g/dL (28.0-37.0); MCV 99.2 fL (80.0-100.0); RBC 2.59 mil/uL (4.20-5.00); RDW 16.3 % (10.5-14.5); WBC 7.5 thou/uL (4.0-11.0)
[2020-03-11 07:47] LABS: ALBUMIN 1.8 g/dL (3.4-5.0); CALCIUM 6.2 mg/dL (8.5-10.1); CREATININE 0.7 mg/dL (0.6-1.0); MAGNESIUM 1.2 mg/dL (1.8-2.4); PHOSPHORUS 1.5 mg/dL (2.5-4.9); POTASSIUM 3.1 mmol/L (3.5-5.1)
[2020-03-11 08:03] VITALS: BP 129/72
[2020-03-11] MEDS ORDERED: ZYPREXA2.5 MG PO (09:47)
[2020-03-11] MEDS ORDERED: LORAZEPAM 0.50.5 MG PO (09:47)
[2020-03-11 10:14] VITALS: BP 129/72
--- NOTE | 2020-03-11 10:58 | NUR ---
PT CARE ASSUMED AT 0700. A&Ox3. PT IS VERY ADAMENT ABOUT GOING HOME TODAY. CASE MANAGMENT CALLED TO HELP SET UP TRANSPORT. PAPERWORK FAXED TO [facility]. SHE PULLED HER IV OUT AND STARTED YELLING I WANT TO GO HOME. FAMILY CALLED AND THEY WERE ABLE TO CALM HER DOWN ENOUGH TO GET THROUGH TO WAIT FOR TRANSPORT TO GET HERE. FALL PROTOCOL IN PLACE. PT LEFT AT 10.59 WITH TRANSPORT TO HOME.
== END 2020-03-11 11:16 | disposition hospice, home (50) | DRG 388 ==
LOC: ER 16:01 → 4S 19:38 → EROBS 19:38 → 4S 03-09 13:43
PROVIDERS: Emergency Medicine; Nurse Practitioner; Nurse Practitioner Family; Surgery; ADMIT Hospitalist
DX: K56.609 Unspecified intestinal obstruction, unspecified as to partial versus complete obstruction (principal); G93.41 Metabolic encephalopathy; E43 Unspecified severe protein-calorie malnutrition; Z68.1 Body mass index [BMI] 19.9 or less, adult; K52.9 Noninfective gastroenteritis and colitis, unspecified; E87.6 Hypokalemia; E83.51 Hypocalcemia; G40.909 Epilepsy, unspecified, not intractable, without status epilepticus; R51 Headache; J44.9 Chronic obstructive pulmonary disease, unspecified; M79.7 Fibromyalgia; K44.9 Diaphragmatic hernia without obstruction or gangrene; K31.84 Gastroparesis; K21.9 Gastro-esophageal reflux disease without esophagitis; E78.5 Hyperlipidemia, unspecified; E03.9 Hypothyroidism, unspecified; G89.4 Chronic pain syndrome; F41.9 Anxiety disorder, unspecified; F32.9 Major depressive disorder, single episode, unspecified; G31.84 Mild cognitive impairment of uncertain or unknown etiology; E53.8 Deficiency of other specified B group vitamins; Z51.5 Encounter for palliative care; E83.42 Hypomagnesemia; K59.00 Constipation, unspecified; Z66 Do not resuscitate; Z90.49 Acquired absence of other specified parts of digestive tract; Z90.89 Acquired absence of other organs; Z88.8 Allergy status to other drugs, medicaments and biological substances; Z79.891 Long term (current) use of opiate analgesic; Z87.891 Personal history of nicotine dependence; Z88.1 Allergy status to other antibiotic agents; Z86.73 Personal history of transient ischemic attack (TIA), and cerebral infarction without residual deficits; Z79.899 Other long term (current) drug therapy
CPT/HCPCS: 10195